=== PATIENT | male | born 1980 | race Two or more races ===

== ENCOUNTER 2025-01-31 18:01 | Inpatient (IN) | payer MEDICAID, OTHER ==
[~2025-01-31] VITALS: Ht 167.6 cm; Wt 101.9 kg
--- NOTE | 2025-01-31 18:37 | ED.PDOC ---
GI ASSESSMENT HPI Comments 44 year old male presents to the ED with a chief complaint of abdominal pain onset 3 days. Patient states he began experiencing RUQ pain 3 days ago, went to urgent care today, was told it was his gallbladder and recommended him to come to ED. Upon ED arrival, patient was hypertensive BP 240/135. Denies any PMHx as well as nausea, vomiting, diarrhea, fever, chills, headache, dizziness, dysuria, hematuria. No other symptoms or modifying factors present at this time. Chief Complaint: Abdominal Pain Time Seen by MD: 18:30 Reviewed Notes: Medications, Allergies Allergies: Coded Allergies: NO KNOWN ALLERGIES (Unverified , 01/31/25) Information Source: Patient, Spouse Mode of Arrival: Ambulatory Timing: Days Duration: Since onset Prehospital treatment: None Quality: Sharp Vomitus: None Severity: Moderate Recent: None Recent Hx of: None Pain Location: RUQ Modifying Factors: Nothing Associated sign and symptoms: Abdominal Pain Past Medical History PAST MEDICAL HISTORY: Denies Surgical History: Denies all surgeries Family History Family History: Reviewed,noncontributory to illness, No family hx of Cancer, No family hx of DM, No family hx of Heart dimas, No family hx of HTN, No family hx ofKidney dimas, No family hx of Liver dimas, No family hx of Lung dimas, No family hx of Stroke Social History Smoker: Non-Smoker Alcohol: Denies ETOH Use Drugs: Denies Drug Use Lives In: Home Constitutional: denies: chills, diaphoresis, fatigue, fever, malaise, sweats, weakness, others EENTM: denies: blurred vision, double vision, ear bleeding, ear discharge, ear drainage, ear pain, ear ringing, eye pain, eye redness, hearing loss, mouth pain, mouth swelling, nasal discharge, nose bleeding, nose congestion, nose pain, photophobia, tearing, throat pain, throat swelling, voice changes, others Respiratory: denies: cough, hemoptysis, orthopnea, SOB at rest, shortness of breath, SOB with excertion, stridor, wheezing, others Cardiovascular: denies: chest pain, dizzy spells, diaphoresis, Dyspnea on exertion, edema, irregular heart beat, left arm pain, lightheadedness, palpitations, PND, syncope, others Gastrointestinal: reports: abdominal pain; denies: abdomen distended, blood streaked bowels, constipated, diarrhea, dysphagia, difficulty swallowing, hematemesis, melena, nausea, poor appetite, poor fluid intake, rectal bleeding, rectal pain, vomiting, others Genitourinary: denies: burning, dysuria, flank pain, frequency, hematuria, in continence, penile discharge, penile sore, pain, testicle pain, testicle swelling, urgency, others Neurological: denies: dizziness, fainting, headache, left sided numbness, left sided weakness, numbness, paresthesia, pre-existing deficit, right sided numbness, right sided weakness, seizure, speech problems, tingling, tremors, weakness, others Musculoskeletal: denies: back pain, gout, joint pain, joint swelling, muscle pain, muscle stiffness, neck pain, others Integumetry: denies: bruises, change in color, change in hair/nails, dryness, laceration, lesions, lumps, rash, wounds, others Allergic/Immunocompromised: denies: Difficulty Healing, Frequent Infections, Hives, Itching, others Hematologic/Lymphatic: denies: anemia, blood clots, easy bleeding, easy bruising, swollen glands, others Endocrine: denies: excessive hunger, excessive sweating, excessive thirst, excessive urination, flushing, intolerance to cold, intolerance to heat, unexplained weight gain, unexplained weight loss, others Psychiatric: denies: anxiety, bipolar disorder, depression, hopeless, panic disorder, schizophrenia, sleepless, suicidal, others All Other Systems: Reviewed and Negative Physical Exam General Appearance: Normal HEENT: Normal ENT Inspection, Pharynx Normal, TMs Normal Neck: Full Range of Motion, Non-Tender, Normal, Normal Inspection Respiratory: Chest Non-Tender, Lungs Clear, No Accessory Muscle Use, No Respiratory Distress, Normal Breath Sounds Cardiovascular: No Edema, No JVD, No Murmur, No Gallop, Normal Peripheral Pulses, Regular Rate/Rhythm Breast Exam: Deferred Gastrointestinal: No Organomegaly, Non Tender, No Pulsatile Mass, Normal Bowel Sounds, Soft Genitalia: Deferred Pelvic: Deferred Rectal: Deferred Extremities: No calf tenderness, Normal capillary refill, Normal inspection, Normal range of motion, Non-tender, No pedal edema Musculoskeletal : Apperance: Normal Neurologic: Alert, needle loom setter II-XII nml as Tested, No Motor Deficits, Normal Affect, Normal Mood, No Sensory Deficits Cerebellar Function: Normal Reflexes: Normal Skin: Dry, Normal Color, Warm Lymphatic: No Adenopathy Was a procedure done? Was a procedure done?: No GI differential Dx Differential Diagnosis: Appendicitis, Cholangitis, Cholecystitis, Constipation, Diverticular disease, Gastritis/PUD, Gastroenteritis, GI hemorrhage, Pancreatitis, Kidney Stone, Other X-Ray, Labs, Meds, VS Vital Signs Date Time Temp Pulse Resp B/P (MAP) Pulse Ox O2 Delivery O2 Flow Rate FiO2 01/31/25 20:18 84 27 189/113 01/31/25 19:40 191/114 01/31/25 19:06 76 20 95 Nasal Cannula* 2 28 01/31/25 19:06 98.6 89 21 191/114 (139) 88 98.6 01/31/25 18:54 77 21 216/121 01/31/25 18:05 99.1 80 16 240/135 93 99.1 Lab Test 01/31/25 18:41 Range/Units White Blood Count 11.6 H 4.4-10.8 10^3/uL Red Blood Count 5.88 4.5-5.90 10^6/uL Hemoglobin 19.5 H 13.5-17.5 g/dL Hematocrit 56.1 H 41.0-53.0 % Mean Corpuscular Volume 95.3 80.0-100.0 fL Mean Corpuscular Hemoglobin 33.1 H 28.0-32.0 pg Mean Corpuscular Hemoglobin Concent 34.7 32.0-36.0 g/dL Red Cell Distribution Width 15.5 H 11.8-14.3 % Platelet Count 204 140-450 10^3/uL Mean Platelet Volume 9.2 6.9-10.8 fL Neutrophils (%) (Auto) 80.1 H 37.0-80.0 % Lymphocytes (%) (Auto) 10.6 10.0-50.0 % Monocytes (%) (Auto) 8.0 0.0-12.0 % Eosinophils (%) (Auto) 0.8 0.0-7.0 % Basophils (%) (Auto) 0.5 0.0-2.0 % Neutrophils # (Auto) 9.3 H 1.6-8.6 10 ^3/uL Lymphocytes # (Auto) 1.2 0.4-5.4 10 ^3/uL Monocytes # (Auto) 0.9 0-1.3 10 ^3/uL Eosinophils # (Auto) 0.1 0-0.8 10 ^3/uL Basophils # (Auto) 0.1 0-0.2 10 ^3/uL Nucleated Red Blood Cells 0.0 % Sodium Level 135 L 136-145 mmol/L Potassium Level 4.5 3.5-5.1 mmol/L Chloride Level 101 98-107 mmol/L Carbon Dioxide Level 26 20-31 mmol/L Anion Gap 8 5-15 Blood Urea Nitrogen 8 L 9-23 mg/dL Creatinine 0.99 0.700-1.30 mg/dL Glomerular Filtration Rate Calc 97 >90 mL/min BUN/Creatinine Ratio 8.1 L 10.0-20.0 Serum Glucose 120 H 74-106 mg/dL Calcium Level 9.0 8.7-10.4 mg/dL Total Bilirubin 0.8 0.2-1.0 mg/dL Aspartate Amino Transferase (AST) 28 13-40 U/L Alanine Aminotransferase (ALT) 25 7-40 U/L Alkaline Phosphatase 59 46-116 U/L Total Protein 7.2 5.7-8.2 g/dL Albumin 4.2 3.2-4.8 g/dL Lipase 33 12-53 U/L Current Medications Medications (Trade) Dose Ordered Sig/Rolo Route Start Time Stop Time Status Last Admin Ondansetron HCl (Zofran) 4 mg ONCE ONCE IV 01/31/25 18:45 01/31/25 18:46 DC 01/31/25 18:50 Morphine Sulfate 4 mg ONCE ONCE IV 01/31/25 18:45 01/31/25 18:46 DC 01/31/25 18:54 Ketorolac Tromethamine (Toradol Injection) 15 mg ONCE ONCE IV 01/31/25 18:45 01/31/25 18:46 DC 01/31/25 18:53 Hydralazine HCl (Apresoline Injection) 20 mg ONCE ONCE IV 01/31/25 19:15 01/31/25 19:16 DC 01/31/25 19:40 [facility] [id number] [place] [id number] Ph: [phone] DIAGNOSTIC IMAGING Diagnostic Imaging Report : [id number] Signed PATIENT: SAMMY KEENAN ACCT: [id number] UNIT: [id number] : 1980 LOC: ER ROOM / BED: / AGE / SEX: 44 / M ADM STATUS: REG ER SERVICE 32 ORDERING PHYSICIAN: BLAIR CAZARES MD PROCEDURE(s): GBUS - GALLBLADDER REASON: RUQ pain ORDER NUMBER(s): [id number], ACCESSION NUMBER(s): [id number] CLINICAL HISTORY: RUQ pain TECHNIQUE: Transabdominal sonogram was performed of the right upper quadrant. COMPARISON: None FINDINGS: The liver is increased in echogenicity. There is no focal parenchymal abnormality. No intrahepatic biliary ductal dilatation is present. The liver measures 19.2 cm. The gallbladder contains stones and sludge. There is moderate 6 mm gallbladder wall thickening. The center graphic funez sign was reported to be absent. The common bile duct is normal in caliber, measuring 3 mm. The partially visualized pancreas is grossly unremarkable. The right kidney is normal in echogenicity and measures 12.3 cm in length. There is no evidence for hydronephrosis or calculi. There are cyst measuring up to 2.6 cm. IMPRESSION: Cholelithiasis with fluid and moderate gallbladder wall thickening. Diffuse hepatic steatosis. ATED BY: IMAN LAMAS MD DICTATED DATE/TIME: 01/31/251946 SIGNED BY: IMAN LAMAS MD SIGNED DATE/TIME: 01/31/251946 CC: Time of 1ST Reevaluation: 19:00 Reevaluation 1ST: Unchanged Patient Education/Counseling: Diagnosis, Treatment, Prognosis Family Education/Counseling: Diagnosis, Treatment, Prognosis SEPSIS Sepsis Screen Date sepsis recognized/suspect: Jan 31, 2025 Time Sepsis recognized/suspect: 1809 Recent Procedure: No (T) On Antibiotic Therapy: No Respiratory Rate >20: No Heart Rate >90: No Temp<36 C (96.8 F) or >38.3 C: No SBP <90 or MAP <65 mmHG: No New Acute Mental Status Change: No Is the patient on CPAP, BIPAP,: No Physician Orders Urinalysis (01/31/25 18:33) Gallbladder (01/31/25 18:33) Lactic Acid W/ Reflex Order (01/31/25 20:19) Blood Culture (01/31/25 20:19) Zosyn Extended Infusion (01/31/25 20:30) Vital Signs Date Time Temp Pulse Resp B/P (MAP) Pulse Ox O2 Delivery O2 Flow Rate FiO2 01/31/25 20:18 84 27 189/113 01/31/25 19:40 191/114 01/31/25 19:06 76 20 95 Nasal Cannula* 2 28 01/31/25 19:06 98.6 89 21 191/114 (139) 88 98.6 01/31/25 18:54 77 21 216/121 01/31/25 18:05 99.1 80 16 240/135 93 99.1 Laboratory Tests Test 01/31/25 18:41 White Blood Count 11.6 10^3/uL (4.4-10.8) H Medications Medications Dose Ordered Sig/Rolo Route Start Time Stop Time Status Last Admin Dose Admin Hydralazine HCl 20 mg ONCE ONCE IV 01/31/25 19:15 01/31/25 19:16 DC 01/31/25 19:40 Ketorolac Tromethamine 15 mg ONCE ONCE IV 01/31/25 18:45 01/31/25 18:46 DC 01/31/25 18:53 Morphine Sulfate 4 mg ONCE ONCE IV 01/31/25 18:45 01/31/25 18:46 DC 01/31/25 18:54 Ondansetron HCl 4 mg ONCE ONCE IV 01/31/25 18:45 01/31/25 18:46 DC 01/31/25 18:50 Departure 1 Departure Time of Disposition: 20:20 Impression: Primary Impression: Cholecystitis Additional Impression: Hypertensive urgency Disposition: ADMITTED INPATIENT Admit to: Med Surg Condition: Guarded Comments Patient with right upper quadrant pain. Also severe hypertension. Patient was given hydralazine for the hypertension. Lab results reviewed. White blood cell count somewhat elevated at 12. Ultrasound of the right upper quadrant shows gallstones and some thickening of the gallbladder wall. Patient is still has some pain on re-evaluation. Patient will need to be admitted for cholecystitis and hypertensive urgency. Critical Care Note Critical Care Time?: Yes (35 min-critical care time only) Critical care comment: Total critical care time: Approximately 36 minutes Due to a high probability of clinically significant, life threatening deterioration, the patient required my highest level of preparedness to intervene emergently and I personally spent this critical care time directly and personally managing the patient. This critical care time included obtaining a history; examining the patient; pulse oximetry; ordering and review of studies; arranging urgent treatment with development of a management plan; evaluation of patient's response to treatment; frequent reassessment; and, discussions with other providers. This critical care time was performed to assess and manage the high probability of imminent, life-threatening deterioration that could result in multi-organ failure. It was exclusive of separately billable procedures and treating other patients. Stability Stability form required: No Heart Score Heart Score: Heart Score Response (Comments) Value History N/A 0 EKG N/A 0 Age N/A 0 Risk Factors N/A 0 Troponin N/A 0 Total 0 I personally scribed for BLAIR CAZARES MD ([email or web address]) on 01/31/25 at 18:37. Electronically submitted by Wilma Thompson ([email or web address]). I personally scribed for BLAIR CAZARES MD ([email or web address]) on 01/31/25 at 20:03. Electronically submitted by Wilma Thompson ([email or web address]). BLAIR CAZARES MD Jan 31, 2025 18:37
[2025-01-31] MEDS: ONDANSETRON HCL 4 MG/2 ML VIAL IV ONE (18:50)
[2025-01-31] MEDS: KETOROLAC TROMETH 30 MG/ML 1ML VIAL IV ONE (18:53)
[2025-01-31] MEDS: MORPHINE SULFATE 4 MG/ML SYR/VIAL IV ONE (18:54)
[2025-01-31 19:03] LABS: Hemoglobin 19.5 g/dL (13.5-17.5); Nucleated Red Blood Cells % 0.0 %
[2025-01-31 19:04] LABS: Hematocrit 56.1 % (41.0-53.0); Mean Corpuscular Hemoglobin 33.1 pg (28.0-32.0); Mean Corpuscular Volume 95.3 fL (80.0-100.0)
[2025-01-31 19:06] VITALS: PULSE 76; RESP 20; O2SAT 95
[2025-01-31 19:18] LABS: Alanine Aminotransferase 25 U/L (7-40); Albumin 4.2 g/dL (3.2-4.8); Alkaline Phosphatase 59 U/L (46-116); Anion Gap 8 (5-15); BUN/Creatinine Ratio 8.1 (10.0-20.0); Bilirubin, Total 0.8 mg/dL (0.2-1.0); Calcium 9.0 mg/dL (8.7-10.4); Carbon Dioxide 26 mmol/L (20-31); Chloride 101 mmol/L (98-107); Lipase 33 U/L (12-53); Potassium 4.5 mmol/L (3.5-5.1); Total Protein 7.2 g/dL (5.7-8.2)
[2025-01-31 19:23] LABS: Blood Urea Nitrogen 8 mg/dL (9-23); Glucose 120 mg/dL (74-106); Sodium 135 mmol/L (136-145)
[2025-01-31] MEDS: hydrALAZINE HCL 20 MG/ML VL IV ONE (19:40)
--- NOTE | 2025-01-31 19:50 | DVH ---
CLINICAL HISTORY: RUQ pain TECHNIQUE: Transabdominal sonogram was performed of the right upper quadrant. COMPARISON: None FINDINGS: The liver is increased in echogenicity. There is no focal parenchymal abnormality. No intrahepatic b iliary ductal dilatation is present. The liver measures 19.2 cm. The gallbladder contains stones and sludge. There is moderate 6 mm gallbladder wall thickening. The c enter graphic funez sign was reported to be absent. The common bile duct is normal in caliber, measuring 3 mm. The partially visualized pancreas is grossly unremarkable. The right kidney is normal in echogenicity and measures 12.3 cm in length. There is no evidence for h ydronephrosis or calculi. There are cyst measuring up to 2.6 cm. IMPRESSION: Cholelithiasis with fluid and moderate gallbladder wall thickening. Diffuse hepatic steatosis.
[2025-01-31 20:00] VITALS: PULSE 84; RESP 27; O2SAT 95
--- NOTE | 2025-01-31 20:24 | ECG ---
[facility] Test Date: 2025-01-31 Test Time: 18:15:06 Pat Name: SAMMY CUNNINGHAM Department: ED Room: 0219 Gender: M Business Intelligence Architect: tristian : 1980 Requested By: BLAIR CAZARES Order Number: [id number] Reading MD: Uche Swartz Measurements Intervals [place] Rate: 76 P: 54 MO: 135 QRS: 148 QRSD: 85 T: 30 QT: 410 QTc: 462 Interpretive Statements Sinus rhythm Nonspecific T abnormalities, lateral leads Baseline wander in lead(s) V3 Electronically Signed On 02-01-2025 17:03:03 PDT by Uche Swartz Please click the below link to view image of tracing.
[2025-01-31] MEDS: PIPERACILLIN-TAZOB 3.375GM 100 ML IV ONE (20:57)
[2025-02-01] VITALS (9 sets, daily range): BP systolic 130–164; BP diastolic 80–91; PULSE 85–99; RESP 18–22; TEMP 97.6–99.3; O2SAT 90–95
[2025-02-01 00:16] LABS: Urine Protein, UAD 2+ (Negative)
[2025-02-01] MEDS: ONDANSETRON HCL 4 MG/2 ML VIAL IV PRN (02:39)
[2025-02-01] MEDS: MORPHINE SULFATE INJ 2 MG/ml SYRG IV PRN (02:41)
[2025-02-01 03:58] LABS: Nucleated Red Blood Cells % 0.0 %
[2025-02-01 04:01] LABS: Hematocrit 56.6 % (41.0-53.0); Hemoglobin 19.8 g/dL (13.5-17.5); Mean Corpuscular Hemoglobin 33.3 pg (28.0-32.0); Mean Corpuscular Volume 95.4 fL (80.0-100.0)
[2025-02-01 04:21] LABS: INR 1.03 (0.9-1.15); Partial Thromboplastin Time 31.3 SEC (24.5-34.5); Prothrombin Time 10.9 sec (9.3-11.8)
[2025-02-01 04:26] LABS: Alanine Aminotransferase 25 U/L (7-40); Albumin 4.3 g/dL (3.2-4.8); Alkaline Phosphatase 60 U/L (46-116); Anion Gap 8 (5-15); BUN/Creatinine Ratio 9.1 (10.0-20.0); Calcium 9.2 mg/dL (8.7-10.4); Carbon Dioxide 27 mmol/L (20-31); Chloride 100 mmol/L (98-107); Potassium 4.7 mmol/L (3.5-5.1); Total Protein 7.4 g/dL (5.7-8.2)
[2025-02-01 04:26] LABS: Cocaine Screen, Urine Neg (NEGATIVE); Opiate Scree,Urine Pos (NEGATIVE)
[2025-02-01 04:27] LABS: Bilirubin, Total 1.2 mg/dL (0.2-1.0)
[2025-02-01 04:29] LABS: Blood Urea Nitrogen 8 mg/dL (9-23); Glucose 139 mg/dL (74-106); Sodium 135 mmol/L (136-145)
[2025-02-01 04:38] LABS: Amphetamine Screen, Urine Neg (NEGATIVE); Barbiturate Scree,Urine Neg (NEGATIVE); Cannabinoid Screen, Urine Neg (NEGATIVE); Phencyclidine Screen, Urine Neg (NEGATIVE)
[2025-02-01 05:57] LABS: Benzodiazephine Screen, Urine Neg (NEGATIVE)
[2025-02-01] MEDS: PIPERACILLIN-TAZOB 3.375GM 100 ML IV SCH (06:16)
--- NOTE | 2025-02-01 06:33 | DVHHPRES ---
History of Present Illness Resident Creating Document: DONNA SINCLAIR RESIDENT History of Present Illness SAMMY KEENAN is a 44-year-old male with past medical history of presented to the ED with chief complaint of right upper quadrant and epigastric tenderness which is 10/10 intensity and radiating to the back associated with nausea, 1 episode of vomiting since 4 days. Patient On Wednesday he had the pain and took an ibuprofen which only partially reduce the pain, he also states that pain increases after eating fatty meals. Patient had similar symptoms about a year ago for which he took ibuprofen at the time and the pain went away. On arrival patient was hypotensive with BP of 240/135. And patient is on 3 L oxygen, does not use home oxygen. Patient denies any diarrhea, fever, chills, headache, dizziness, dysuria, hematuria, blood in the stool. Patient is admitted for for the management. Past surgical history: Denies Family History: Reviewed noncontributory Personal History: 5-6 cigarettes per day, drinks 5 beers per week, denies any drug use Lives with: Family Review of Systems Constitutional: No: Fever, Chills, Sweats, Weakness, Malaise, Other Eyes: No: Pain, Vision change, Conjunctivae inflammation, Eyelid inflammation, Other, Redness ENT: No: Ear pain, Ear discharge, Nose pain, Nose discharge, Nose congestion, Mouth pain, Mouth swelling, Throat pain, Throat swelling, Other Respiratory: No: Cough, Dry, Shortness of breath, SOB with excertion, Wheezing, Hemoptysis, Pleuritic Pain, Sputum, Wheezing, Other Cardiovascular: No: Chest Pain, Palpitations, Orthopnea, Paroxysmal Noc. D yspnea, Edema, Lt Headedness, Other Gastrointestinal: Nausea, Abdominal Pain; No: Vomiting, Diarrhea, Constipation, Melena, Hematochezia, Other Genitourinary: No Dysuria, No Frequency, No Incontinence, No Hematuria, No Retention, No Other Musculoskeletal: No: other, neck pain, shoulder pain, arm pain, back pain, hand pain, leg pain, foot pain Skin: No: Rash, Lesions, Jaundice, Bruising, Other Neurological: No: Weakness, Numbness, Incoordination, Change in speech, Confusion, Seizures, Other Allergies: Coded Allergies: NO KNOWN ALLERGIES (Unverified , 01/31/25) Medications Current Medications Medications Dose Ordered Sig/Rolo Route Start Time Stop Time Status Last Admin Dose Admin Acetaminophen 325 mg Q4HP PRN PO 02/01/25 01:30 Ondansetron HCl 4 mg Q4HP PRN IV 02/01/25 01:30 02/01/25 02:39 4 MG Morphine Sulfate 2 mg Q4HPRN PRN IV 02/01/25 01:30 02/01/25 02:41 2 MG Nifedipine 60 mg DAILY PO 02/01/25 02:30 02/01/25 02:39 60 MG Piperacillin Sod/ Tazobactam Sod 100 ml @ 25 mls/hr Q8HR IV 02/01/25 06:00 Exam Vital Signs Vital Signs Date Time Temp Pulse Resp B/P (MAP) Pulse Ox O2 Delivery O2 Flow Rate FiO2 02/01/25 05:28 97.9 85 18 164/91 (115) 93 97.9 01/31/25 20:00 Nasal Cannula* 2 28 Exam General: Patient alert and oriented in person, place and time. Patient following commands. In moderate distress HEENT: Normocephalic, atraumatic, moist mucous membranes Respiratory/pulmonary: Clear lungs bilaterally, vesicular murmurs present in almost all lung melara, no associated crackles or wheezes. Cardiovascular: Normal heart sounds S1 and S2 with no associated murmurs Abdomen: Right upper quadrant , epigastric tenderness, Barnard sign positive Extremities: Mild bilateral edema Peripheral Pulses: 3+ Radial (R). 3+ Radial (L). 3+ Dorsalis pedis (R). 3+ Dorsalis pedis(L) Skin: No rashes or pruritus, there is no sacral edema present at this time. Neurological: Intact cranial nerves with no focal neurologic deficits Psych/mood: Normal psych/mood Respiratory: Clear to auscultation Labs/Xrays Labs Test 02/01/25 03:47 01/31/25 23:45 01/31/25 20:35 01/31/25 18:41 Range/Units White Blood Count 14.2 H 4.4-10.8 10^3/uL Red Blood Count 5.93 H 4.5-5.90 10^6/uL Hemoglobin 19.8 H 13.5-17.5 g/dL Hematocrit 56.6 H 41.0-53.0 % Mean Corpuscular Volume 95.4 80.0-100.0 fL Mean Corpuscular Hemoglobin 33.3 H 28.0-32.0 pg Mean Corpuscular Hemoglobin Concent 35.0 32.0-36.0 g/dL Red Cell Distribution Width 15.7 H 11.8-14.3 % Platelet Count 207 140-450 10^3/uL Mean Platelet Volume 9.0 6.9-10.8 fL Neutrophils (%) (Auto) 86.2 H 37.0-80.0 % Lymphocytes (%) (Auto) 5.7 L 10.0-50.0 % Monocytes (%) (Auto) 7.3 0.0-12.0 % Eosinophils (%) (Auto) 0.3 0.0-7.0 % Basophils (%) (Auto) 0.5 0.0-2.0 % Neutrophils # (Auto) 12.2 H 1.6-8.6 10 ^3/uL Lymphocytes # (Auto) 0.8 0.4-5.4 10 ^3/uL Monocytes # (Auto) 1.0 0-1.3 10 ^3/uL Eosinophils # (Auto) 0 0-0.8 10 ^3/uL Basophils # (Auto) 0.1 0-0.2 10 ^3/uL Nucleated Red Blood Cells 0.0 % Prothrombin Time 10.9 9.3-11.8 sec Prothrombin Time INR 1.03 0.9-1.15 Activated Partial Thromboplast Time 31.3 24.5-34.5 SEC Sodium Level 135 L 136-145 mmol/L Potassium Level 4.7 3.5-5.1 mmol/L Chloride Level 100 98-107 mmol/L Carbon Dioxide Level 27 20-31 mmol/L Anion Gap 8 5-15 Blood Urea Nitrogen 8 L 9-23 mg/dL Creatinine 0.88 0.700-1.30 mg/dL Glomerular Filtration Rate Calc 109 >90 mL/min BUN/Creatinine Ratio 9.1 L 10.0-20.0 Serum Glucose 139 H 74-106 mg/dL Calcium Level 9.2 8.7-10.4 mg/dL Total Bilirubin 1.2 H 0.2-1.0 mg/dL Aspartate Amino Transferase (AST) 25 13-40 U/L Alanine Aminotransferase (ALT) 25 7-40 U/L Alkaline Phosphatase 60 46-116 U/L Total Protein 7.4 5.7-8.2 g/dL Albumin 4.3 3.2-4.8 g/dL Urine Color Yellow Yellow Urine Clarity Clear Clear Urine pH 6.0 5.0-9.0 Urine Specific [place] 1.021 1.001-1.035 Urine Protein 2+ H Negative Urine Ketones Negative Negative Urine Blood Negative Negative /uL Urine Nitrite Negative Negative Urine Bilirubin Negative Negative Urine Urobilinogen Normal Negative mg/dL Urine Leukocyte Esterase Negative Negative /uL Urine RBC None seen 0 - 3 /hpf Urine Microscopic WBC 2 0-3 /HPF Urine Squamous Epithelial Cells None seen <5 /hpf Urine Bacteria None seen None Seen /hpf Urine Mucus Few None Seen Urine Glucose Normal Normal mg/dL Urine Opiates Screen Pos NEGATIVE Urine Fentanyl Screen Neg NEGATIVE Urine Barbiturates Screen Neg NEGATIVE Urine Phencyclidine Screen Neg NEGATIVE Urine Amphetamines Screen Neg NEGATIVE Urine Cocaine Screen Neg NEGATIVE Urine Cannabinoids Screen Neg NEGATIVE Lactic Acid Level 1.1 0.4-2.0 mmol/L Lipase 33 12-53 U/L SEPSIS Sepsis Screen Date sepsis recognized/suspect: Jan 31, 2025 Time Sepsis recognized/suspect: 2027 Recent Procedure: No On Antibiotic Therapy: Yes Respiratory Rate >20: Yes Heart Rate >90: No Temp<36 C (96.8 F) or >38.3 C: No SBP <90 or MAP <65 mmHG: No New Acute Mental Status Change: No Is the patient on CPAP, BIPAP,: No Physician Orders Admit (02/01/25 01:28) Allergies (02/01/25 01:28) Code Status (02/01/25 01:28) Acetaminophen Tablet (Tylenol Tablet) (02/01/25 01:30) Ondansetron Hcl (Zofran) (02/01/25 01:30) Npo (Nothing By Mouth) Diet (02/01/25 Breakfast) Condition: Serious (02/01/25 01:28) Bedrest With Bathroom Privileg (02/01/25 01:28) Morphine Sulfate Injection (02/01/25 01:30) Stat Ekg For Chest Pain (02/01/25 01:28) Drug Screen (02/01/25 02:19) Nifedipine Er (Procardia Xl (Time-Releas (02/01/25 02:30) Nm Hida Scan (02/01/25 03:29) Piperacillin-Tazob 3.375gm (Zosyn 3.375g (02/01/25 06:00) * Surgical Consult (02/01/25 ) D5w/Lactated Ringers (D5wlr) (02/01/25 06:00) Vital Signs Date Time Temp Pulse Resp B/P (MAP) Pulse Ox O2 Delivery O2 Flow Rate FiO2 02/01/25 05:28 97.9 85 18 164/91 (115) 93 97.9 02/01/25 05:00 88 23 150/89 (109) 96 02/01/25 04:00 85 23 164/89 (114) 96 02/01/25 03:15 81 25 167/106 (126) 95 02/01/25 02:41 90 19 160/93 02/01/25 02:39 160/93 02/01/25 02:00 87 27 160/93 (115) 94 02/01/25 01:00 85 15 170/90 (116) 95 02/01/25 00:00 89 24 147/90 (109) 95 01/31/25 23:00 89 27 145/89 (107) 95 01/31/25 22:00 82 17 159/89 (112) 94 Laboratory Tests Test 01/31/25 18:41 01/31/25 20:35 02/01/25 03:47 White Blood Count 11.6 10^3/uL (4.4-10.8) H 14.2 10^3/uL (4.4-10.8) H Lactic Acid Level 1.1 mmol/L (0.4-2.0) Medications Medications Dose Ordered Sig/Rolo Route Start Time Stop Time Status Last Admin Dose Admin Hydralazine HCl 20 mg ONCE ONCE IV 01/31/25 19:15 01/31/25 19:16 DC 01/31/25 19:40 20 MG Ketorolac Tromethamine 15 mg ONCE ONCE IV 01/31/25 18:45 01/31/25 18:46 DC 01/31/25 18:53 15 MG Morphine Sulfate 2 mg Q4HPRN PRN IV 02/01/25 01:30 02/01/25 02:41 2 MG Morphine Sulfate 4 mg ONCE ONCE IV 01/31/25 18:45 01/31/25 18:46 DC 01/31/25 18:54 4 MG Nifedipine 60 mg DAILY PO 02/01/25 02:30 02/01/25 02:39 60 MG Ondansetron HCl 4 mg ONCE ONCE IV 01/31/25 18:45 01/31/25 18:46 DC 01/31/25 18:50 4 MG Ondansetron HCl 4 mg Q4HP PRN IV 02/01/25 01:30 02/01/25 02:39 4 MG Piperacillin Sod/ Tazobactam Sod 100 ml @ 100 mls/hr ONCE ONCE IV 01/31/25 20:30 01/31/25 21:29 DC 01/31/25 20:57 100 MLS/HR Assessment/Plan Assessment/Plan # sepsis possibly due to acute cholecystitis # symptomatic cholelithiasis # rule out acute cholecystitis # hepatic steatosis # hyperBilirubinemia - gallbladder ultrasound showed Cholelithiasis with fluid and moderate gallbladder wall thickening. Diffuse hepatic steatosis. - HIDA scan ordered - surgery consulted, pending - IV Zosyn started -Barnard's sign positive # diabetes mellitus - Accu-Cheks -mild insulin sliding scale # hypertension -continue home meds # polysubstance abuse disorder: UDS Positive for opiates -patient counseled on cessation of smoking, drinking, drug use for 13 minutes # obesity BMI 33.6 -patient counseled on lifestyle modifications, diet, exercise for 13 minutes PPI prophylaxis: Protonix DVT prophylaxis: Not indicated Goals of care addressed with the patient for more than 31 minutes: Full code status Case discussed with Dr. Smith , patient and nurse Plan discussed with: Patient My Orders Orders - DONNA SINCLAIR RESIDENT Procedure Category Date Status Time Admit ADMIT 02/01/25 Transmitted 01:28 Allergies BINH 02/01/25 In Process 01:28 Code Status CODE 02/01/25 Transmitted 01:28 Acetaminophen Tablet PHA 02/01/25 In Process (Tylenol Tablet) 01:30 Ondansetron Hcl PHA 02/01/25 In Process (Zofran) 01:30 Npo (Nothing By DIET 02/01/25 Transmitted Mouth) Diet Breakfast Condition: Serious BINH 02/01/25 In Process 01:28 Bedrest With Bathroom BINH 02/01/25 In Process Privileg 01:28 Morphine Sulfate PHA 02/01/25 In Process Injection 01:30 Stat Ekg For Chest [facility]INH 02/01/25 In Process Pain 01:28 Nm Hida Scan NM 02/01/25 Logged 03:29 Piperacillin-Tazob PHA 02/01/25 In Process 3.375gm (Zosyn 3.375g 06:00 * Surgical Consult CONS 02/01/25 Transmitted D5w/Lactated Ringers PHA 02/01/25 Logged (D5wlr) 06:00 Date of Service: Feb 01, 2025 Billing Provider: LESLEI SMITH MD Common Visit Codes: 43699-[id number] INP/OBS CARE (HIGH) Secondary Visit Codes: 47616-[id number] CARE PLAN 30 MINUTES DONNA SINCLAIR RESIDENT Feb 01, 2025 06:33
[2025-02-01] MEDS ORDERED: METF-372 PO (07:12)
[2025-02-01] MEDS: ACETAMINOPHEN 325 MG TAB PO PRN (08:23)
[2025-02-01] MEDS: SODIUM CHLORIDE 0.9% 500 ML IV ONE (09:34)
[2025-02-01] MEDS: D5W/LACTATED RINGERS 1,000 ML IV ONE (11:11)
[2025-02-01] MEDS: SODIUM CHLORIDE 0.9% 1,000 ML IV SCH (13:27)
--- NOTE | 2025-02-01 15:04 | DVHPNRES ---
Progress Note Date Seen: Feb 01, 2025 Resident Creating Document: ASPEN BATISTA RESIDENT Medical Necessity Reason Pt with a Central, PICC or Fol: No (RN) Subjective Review of Systems Ferdinand Hong is a 44-year-old male who presents to the ED with chief complaint of right upper quadrant and epigastric tenderness which is 10/10 intensity and radiating to the back associated with nausea, 1 episode of vomiting which started four days before his admission, aggravated by food and partially relieved by ibuprofen and fasting. Patient denies any diarrhea, fever, chills, headache, dizziness, dysuria, hematuria, blood in the stool. Past medical history: Diabetes, hypertension, dyslipidemia, obese Past surgical history: Denies Family History: Noncontributory Social history: Lives with family in [place] (next o kin ). Current smoker (5-6 cigarettes per day a proximally 10 pack-year history of smoking), drinks 5 beers per week, denies any drug use Allergies: Denies Home medication: Metformin a 1000 mg p.o. b.i.d. The patient was seen and examined at bedside. Overnight events were reviewed. He reports having upper abdominal pain improved from yesterday, currently NPO. He denies any chest pain, shortness of breath, cough, fever or any other complaints today. Objective vital signs Vital Sign Date Time Temp Pulse Resp B/P (MAP) Pulse Ox O2 Delivery O2 Flow Rate FiO2 02/01/25 14:50 98.2 90 18 139/80 (99) 92 98.2 01/31/25 20:00 Nasal Cannula* 2 28 Total Intake and Output 01/31/25 01/31/25 02/01/25 14:59 22:59 06:59 Intake Total 100 ml Balance 100 ml medications Current Medications Medications Dose Ordered Sig/Rolo Route Start Time Stop Time Status Last Admin Dose Admin Acetaminophen 325 mg Q4HP PRN PO 02/01/25 01:30 02/01/25 08:23 325 MG Ondansetron HCl 4 mg Q4HP PRN IV 02/01/25 01:30 02/01/25 02:39 4 MG Morphine Sulfate 2 mg Q4HPRN PRN IV 02/01/25 01:30 02/01/25 02:41 2 MG Nifedipine 60 mg DAILY PO 02/01/25 02:30 02/01/25 09:37 60 MG Piperacillin Sod/ Tazobactam Sod 100 ml @ 25 mls/hr Q8HR IV 02/01/25 06:00 02/01/25 06:16 25 MLS/HR Sodium Chloride 1,000 ml @ 100 mls/hr Q10H IV 02/01/25 08:00 Examination Pt is lying on bed General Appearance: Alert, Oriented X3, Cooperative, Mild distress HEENT: Atraumatic, Mucous membranes moist/pink Respiratory: Clear to auscultation, Normal air movement, No added sounds Cardiovascular: Regular rate, Normal S1, Normal S2, No murmurs Abdominal/ : Active bowel sounds, Soft, no distention, right upper abdominal tenderness Extremities: No edema, Normal pulses, No tenderness/swelling Skin: No Significant rash, except past surgical scars Neuro: Normal speech, sensorimotor deficits none Psych/Mental Status: Mental status NL, Mood NL 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 Diffuse hepatic steatosis. -HIDA scan ordered, results pending -surgery consulted, pending -NPO -IV fluid -IV Zosyn started # Hypertensive urgency -Patient has history of hypertension but was controlled with lifestyle habits. -Was admitted with systolic blood pressure of 240 mmHg. Has no signs of end- organ damage -Started nifedipine # Diabetes mellitus # Hypertension -Accu-Cheks -On mild insulin sliding scale -Gave advice on healthy lifestyle habits # Obesity BMI 33.6 -Patient counseled on lifestyle modifications, diet, exercise for 13 minutes PPI prophylaxis: Protonix DVT prophylaxis: Enoxaparin 40 mg subcutaneous daily Goals of care discussed with patient for over 18 minutes: Full code status Case discussed with Dr. Patton, patient and nurses Plan discussed with: Patient, Other ASPEN BATISTA RESIDENT Feb 01, 2025 15:03 DONAL MAXWELL RESIDENT Feb 02, 2025 06:55
--- NOTE | 2025-02-01 16:17 | DVHINCON2 ---
Date of service: Feb 01, 2025 Family History: GI disorder Allergies: Coded Allergies: NO KNOWN ALLERGIES (Unverified , 01/31/25) Home Meds Reported Medications Metformin Hydrochloride (Metformin Hcl) 1,000 Mg Tab, 1 TAB PO BID, #180 TAB 1 Refill 02/01/25 Current Medications Current Medications Medications (Trade) Dose Ordered Sig/Rolo Route PRN Reason Start Time Stop Time Status Last Admin Acetaminophen (Tylenol Tablet) 325 mg Q4HP PRN PO MILD PAIN (1-3 PAIN SCALE) 02/01/25 01:30 02/01/25 08:23 Ondansetron HCl (Zofran) 4 mg Q4HP PRN IV NAUSEA / VOMITING 02/01/25 01:30 02/01/25 02:39 Morphine Sulfate 2 mg Q4HPRN PRN IV SEVERE PAIN (7-10 PAIN SCALE) 02/01/25 01:30 02/01/25 02:41 Nifedipine (Procardia Xl (Time-Release)) 60 mg DAILY PO 02/01/25 02:30 02/01/25 09:37 Piperacillin Sod/ Tazobactam Sod 100 ml @ 25 mls/hr Q8HR IV 02/01/25 06:00 02/01/25 15:00 Sodium Chloride 1,000 ml @ 100 mls/hr Q10H IV 02/01/25 08:00 02/01/25 15:07 Metformin HCl (Glucophage) 1,000 mg DAILY PO 02/02/25 10:00 UNV Vital Signs Vital Signs Date Time Temp Pulse Resp B/P (MAP) Pulse Ox O2 Delivery O2 Flow Rate FiO2 02/01/25 15:07 94 Room Air* 0 21 02/01/25 14:50 98.2 18 139/80 (99) 92 98.2 Labs/Diagnostic Data Labs Test 02/01/25 09:13 02/01/25 06:55 02/01/25 03:47 01/31/25 23:45 Range/Units Vitamin D 25-Hydroxy 8.4 L 30.0-100 ng/mL Lactic Acid Level 1.8 0.4-2.0 mmol/L White Blood Count 14.2 H 4.4-10.8 10^3/uL Red Blood Count 5.93 H 4.5-5.90 10^6/uL Hemoglobin 19.8 H 13.5-17.5 g/dL Hematocrit 56.6 H 41.0-53.0 % Mean Corpuscular Volume 95.4 80.0-100.0 fL Mean Corpuscular Hemoglobin 33.3 H 28.0-32.0 pg Mean Corpuscular Hemoglobin Concent 35.0 32.0-36.0 g/dL Red Cell Distribution Width 15.7 H 11.8-14.3 % Platelet Count 207 140-450 10^3/uL Mean Platelet Volume 9.0 6.9-10.8 fL Neutrophils (%) (Auto) 86.2 H 37.0-80.0 % Lymphocytes (%) (Auto) 5.7 L 10.0-50.0 % Monocytes (%) (Auto) 7.3 0.0-12.0 % Eosinophils (%) (Auto) 0.3 0.0-7.0 % Basophils (%) (Auto) 0.5 0.0-2.0 % Neutrophils # (Auto) 12.2 H 1.6-8.6 10 ^3/uL Lymphocytes # (Auto) 0.8 0.4-5.4 10 ^3/uL Monocytes # (Auto) 1.0 0-1.3 10 ^3/uL Eosinophils # (Auto) 0 0-0.8 10 ^3/uL Basophils # (Auto) 0.1 0-0.2 10 ^3/uL Nucleated Red Blood Cells 0.0 % Erythrocyte Sedimentation Rate 6 0-20 mm/hr Prothrombin Time 10.9 9.3-11.8 sec Prothrombin Time INR 1.03 0.9-1.15 Activated Partial Thromboplast Time 31.3 24.5-34.5 SEC Sodium Level 135 L 136-145 mmol/L Potassium Level 4.7 3.5-5.1 mmol/L Chloride Level 100 98-107 mmol/L Carbon Dioxide Level 27 20-31 mmol/L Anion Gap 8 5-15 Blood Urea Nitrogen 8 L 9-23 mg/dL Creatinine 0.88 0.700-1.30 mg/dL Glomerular Filtration Rate Calc 109 >90 mL/min BUN/Creatinine Ratio 9.1 L 10.0-20.0 Serum Glucose 139 H 74-106 mg/dL Hemoglobin A1c 6.6 H <5.7 % A1C Calcium Level 9.2 8.7-10.4 mg/dL Total Bilirubin 1.2 H 0.2-1.0 mg/dL Aspartate Amino Transferase (AST) 25 13-40 U/L Alanine Aminotransferase (ALT) 25 7-40 U/L Alkaline Phosphatase 60 46-116 U/L C-Reactive Protein High Sensitivity 14.52 H <1.0 mg/dL Total Protein 7.4 5.7-8.2 g/dL Albumin 4.3 3.2-4.8 g/dL Thyroid Stimulating Hormone (TSH) 27.24 H 0.55-4.78 uIU/mL Urine Color Yellow Yellow Urine Clarity Clear Clear Urine pH 6.0 5.0-9.0 Urine Specific [place] 1.021 1.001-1.035 Urine Protein 2+ H Negative Urine Ketones Negative Negative Urine Blood Negative Negative /uL Urine Nitrite Negative Negative Urine Bilirubin Negative Negative Urine Urobilinogen Normal Negative mg/dL Urine Leukocyte Esterase Negative Negative /uL Urine RBC None seen 0 - 3 /hpf Urine Microscopic WBC 2 0-3 /HPF Urine Squamous Epithelial Cells None seen <5 /hpf Urine Bacteria None seen None Seen /hpf Urine Mucus Few None Seen Urine Glucose Normal Normal mg/dL Urine Opiates Screen Pos NEGATIVE Urine Fentanyl Screen Neg NEGATIVE Urine Barbiturates Screen Neg NEGATIVE Urine Phencyclidine Screen Neg NEGATIVE Urine Amphetamines Screen Neg NEGATIVE Urine Benzodiazepines Screen Neg NEGATIVE Urine Cocaine Screen Neg NEGATIVE Urine Cannabinoids Screen Neg NEGATIVE Test 01/31/25 18:41 Range/Units Lipase 33 12-53 U/L Assessment 44 year old male with documented cholelithiasis and cholecystitis, abdomne tender in ruq with guarding laparoscopic vs open cholecystrectomy risks and complications explained in detail Plan discussed with: Patient SARAHI POMPA MD Feb 01, 2025 16:17
--- NOTE | 2025-02-01 17:16 | DVH ---
EXAM: NM NM HIDA SCAN History: rule out acute Cholecystitis Comparison Study: None TECHNIQUE: Following intravenous administration of 6.2 mCi of Tc-99m mebrofenin (Choletec), dynamic sequential images of the right upper abdomen were acquired for 60 minutes. 4 hour delayed planar imag es were also obtained. FINDINGS: The liver demonstrates prompt radiotracer uptake with clearance from blood pool. No focal perfusion d efects were noted. There was prompt excretion of the radiotracer into the biliary tree, without evide nce of biliary dilatation or obstruction. There was no filling of the gallbladder on the 4 hour delayed images. IMPRESSION: 1. Nonvisualized gallbladder, consistent with acute cholecystitis.
[2025-02-02] VITALS (22 sets, daily range): BP systolic 104–157; BP diastolic 74–95; PULSE 83–115; RESP 14–22; TEMP 97.8–98.5; O2SAT 67–97
[2025-02-02] MEDS ORDERED: DEXTROSE (50%) 50ML SYRG IV PRN (06:30)
[2025-02-02 08:04] LABS: Anion Gap 9 (5-15); Carbon Dioxide 29 mmol/L (20-31); Chloride 100 mmol/L (98-107); Potassium 4.1 mmol/L (3.5-5.1); Sodium 138 mmol/L (136-145)
[2025-02-02 08:05] LABS: Calcium 9.2 mg/dL (8.7-10.4)
[2025-02-02 08:10] LABS: BUN/Creatinine Ratio 9.7 (10.0-20.0); Blood Urea Nitrogen 10 mg/dL (9-23)
[2025-02-02 08:12] LABS: Glucose 130 mg/dL (74-106); Hematocrit 53.2 % (41.0-53.0); Mean Corpuscular Hemoglobin 33.0 pg (28.0-32.0); Nucleated Red Blood Cells % 0.0 %
[2025-02-02 08:15] LABS: Hemoglobin 18.2 g/dL (13.5-17.5); Mean Corpuscular Volume 96.2 fL (80.0-100.0)
[2025-02-02 09:03] LABS: Free T4 (Free Thyroxine) 0.65 ng/dL (0.89-1.76)
[2025-02-02] MEDS: ENOXAPARIN SOD 40 MG/0.4 ML SYRINGE SC SCH (10:20)
[2025-02-02 10:58] LABS: Hepatitis B Surface Antigen Negative (Negative); Hepatitis C Antibody Negative (Negative)
[2025-02-02] MEDS: SODIUM CHLORIDE 0.9% 1,000 ML IV ONE (11:15)
--- NOTE | 2025-02-02 11:24 | DVH ---
CHEST RADIOGRAPH Indication: low sat on room air Technique: Single frontal view of the chest was obtained Comparison: None FINDINGS: Lines and Tubes: None Lungs: There is bilateral increased interstitial prominence. No focal consolidation. Pleura: No effusion. No pneumothorax. Cardiomediastinal contours: Unremarkable Bones: No acute osseous abnormality. IMPRESSION: 1. Pulmonary vascular congestion.
[2025-02-02] MEDS: ACCU-CHEK COMFORT CURVE STRIP VI SCH (12:00)
[2025-02-02] MEDS: InsuLIN REG 1unit/0.01ml Soln (100units/ml) SC SCH (12:00)
[2025-02-02] MEDS: LIDOCAINE W/ EPINEPHRINE 1% 20ML VIAL ONE (12:52)
[2025-02-02] MEDS: BUPIVACAINE 0.5% P/F INJ 10 ML VIAL ONE (12:52)
[2025-02-02] MEDS ORDERED: ONDANSETRON HCL 4 MG/2 ML VIAL IV PRN (13:00)
[2025-02-02] MEDS ORDERED: HYDROmorphone HCL 2 MG/ML VL/or syr IV PRN (13:00)
[2025-02-02] MEDS: ACETAMINOPHEN IV 1000 MG/100ML (10MG/ML) IV ONE (13:00)
[2025-02-02] MEDS: ACCU-CHEK COMFORT CURVE STRIP VI ONE (13:15)
--- NOTE | 2025-02-02 13:24 | DVHOP ---
DATE OF SURGERY: 02/02/2025 PREOPERATIVE DIAGNOSES: * Cholelithiasis. * Cholecystitis. POSTOPERATIVE DIAGNOSES: * Cholelithiasis. * Cholecystitis. SURGEON: Raphael Jorgensen MD TRANSPORT TECHNICIAN: Bernard Proctor NP ANESTHESIA: General endotracheal, Dr. Lynn. PROCEDURES: * Laparoscopy. * Laparoscopic cholecystectomy. DESCRIPTION OF PROCEDURE: Under general endotracheal anesthesia with the patient's skin prepped and draped, a supraumbilical incision was made and Veress needle inserted into the peritoneal cavity by the hanging drop technique in order to establish pneumoperitoneum to 15 mmHg pressure by insufflation with carbon dioxide. With the abdomen fully distended, the needle was removed and replaced with a 5 mm trocar port through which a 0-degree viewing laparoscope was inserted and under direct vision additional 5 and 10 mm ports inserted through the right anterior axillary line at the level of the umbilicus and through the subxiphoid skin in the midline respectively. Laparoscopy was performed and instrumentation was introduced. There was no evidence of unexpected pathology on the serosal surfaces visualized. The gallbladder, however, was massively enlarged and affected by exuberant cholecystitis. The distended gallbladder was aspirated of inspissated feculent-appearing bile which was sent for cultures and sensitivities. Gallbladder was placed on tension and cystic duct and cystic artery were identified, circumferentially dissected, skeletonized, and traced into the hepatocystic triangle so as to minimize the potential for inadvertent injury to the common bile duct. Cystic duct and cystic artery were then divided between metallic clips close to the gallbladder, again avoiding the possibility of injury to the common bile duct. Following division of the cystic duct and cystic artery, the gallbladder was resected from its liver bed by electrocautery and traction. The fully mobilized gallbladder was removed from the peritoneal cavity by placement in a specimen extraction bag which was withdrawn through the 10 mm port site. Subhepatic space was irrigated. Irrigant was aspirated. Hemostasis was meticulously assured and found to be complete. A 10 mm Krystian-Marin drain was placed underneath the right lobe of the liver and exteriorized through the 5 mm port site on the right flank of the patient's body and secured with a 2-0 nylon suture. The right upper quadrant was profusely irrigated. Irrigant was aspirated. Following further assurance of complete hemostasis, instrumentation was withdrawn, pneumoperitoneum was evacuated. Fascia defect closed using 0 Vicryl. Wounds approximated using Monocryl sutures, Dermabond glue, and Steri-Strips. The patient remained stable throughout the procedure and left the operating room following an accurate needle and sponge count. His , Marya, was thoroughly informed at [phone]. MD YAHIR Alba/SUNNY TID: [id number] RECEIPT: [id number]
--- NOTE | 2025-02-02 14:14 | DVHPNRES ---
Progress Note Date Seen: Feb 02, 2025 Resident Creating Document: ASPEN BATISTA RESIDENT Medical Necessity Reason Pt with a Central, PICC or Fol: No (RN) Subjective Review of Systems The patient was seen and examined at bedside. He reports having right upper quadrant pain and mild shortness of breaths due to the pain. He denies any chest pain, fever or any other complaints today. Objective vital signs Vital Sign Date Time Temp Pulse Resp B/P (MAP) Pulse Ox O2 Delivery O2 Flow Rate FiO2 02/02/25 08:24 98.3 95 18 127/80 (96) 95 98.3 02/02/25 08:00 Nasal Cannula* 3 32 Total Intake and Output 02/01/25 02/01/25 02/02/25 15:00 23:00 07:00 Intake Total 100 ml Balance 100 ml medications Current Medications Medications Dose Ordered Sig/Rolo Route Start Time Stop Time Status Last Admin Dose Admin Acetaminophen 325 mg Q4HP PRN PO 02/01/25 01:30 02/01/25 08:23 325 MG Ondansetron HCl 4 mg Q4HP PRN IV 02/01/25 01:30 02/01/25 02:39 4 MG Morphine Sulfate 2 mg Q4HPRN PRN IV 02/01/25 01:30 02/01/25 21:49 2 MG Nifedipine 60 mg DAILY PO 02/01/25 02:30 02/01/25 09:37 60 MG Ergocalciferol 50,000 unit Q7D PO 02/04/25 10:00 Diagnostic Test (Pha) 1 strip Q6HR 02/02/25 12:00 Insulin Human Regular Q6HR SC 02/02/25 12:00 Dextrose 50 ml UD PRN IV 02/02/25 06:30 Ondansetron HCl 4 mg ONCE PRN IV 02/02/25 13:00 02/02/25 13:01 UNV Hydromorphone HCl 0.5 mg Q10M PRN IV 02/02/25 13:00 02/02/25 13:41 UNV Examination Pt is lying on bed General Appearance: Alert, Oriented X3, Cooperative, Mild distress HEENT: Atraumatic, Mucous membranes moist/pink Respiratory: Clear to auscultation, Normal air movement, No added sounds Cardiovascular: Regular rate, Normal S1, Normal S2, No murmurs Abdominal/ : Active bowel sounds, Soft, no distention, right upper quadrant tenderness and Barnard sign positive Extremities: No edema, Normal pulses, No tenderness/swelling Skin: No Significant rash, except past surgical scars Neuro: Normal speech, sensorimotor deficits none Psych/Mental Status: Mental status NL, Mood NL Nurse was there as tub mender during examination laboratory and microbiology Laboratory Tests 02/02/25 06:04 Test 02/02/25 06:04 Range/Units Serum Glucose 130 H 74-106 mg/dL Microbiology Date/Time Source Procedure Growth Status 01/31/25 20:35 Blood Blood Culture - Preliminary NO GROWTH AFTER 24 HOURS OF INCUBATION. Resulted Labs and/or images reviewed: Labs reviewed by me, Image(s) reviewed by me Problem List/Assessment/Plan Problem List/Assessment/Plan # day 0 status post laparoscopic cholecystectomy # sepsis possibly due to acute cholecystitis # symptomatic cholelithiasis # rule out acute cholecystitis # hepatic steatosis # hyperbilirubinemia - gallbladder ultrasound showed Cholelithiasis with fluid and moderate gallbladder wall thickening. Diffuse hepatic steatosis. - HIDA scan: Acute cholecystitis - IV fluid D5W in LR -morphine p.r.n. for pain -Tylenol and ondansetron given for symptomatic management # diabetes mellitus - Accu-Cheks -mild insulin sliding scale # hypertension - nifedipine 60 mg p.o. daily # obesity BMI 33.6 -patient counseled on lifestyle modifications, diet, exercise for 13 minutes PPI prophylaxis: Protonix DVT prophylaxis: SCDs Case discussed with Dr. Patton, Full Code status. Plan discussed with: Patient, Other My Orders My Orders Orders - ASPEN BATISTA Procedure Category Date Status Time Echo 2d Mode Cardiac US 02/02/25 Logged DOP 10:16 Date of Service: Feb 02, 2025 Billing Provider: STEVEN PATTON MD Common Visit Codes: [id number] INP/OBS CARE(HIGH) ASPEN BATISTA Feb 02, 2025 14:14 STEVEN PATTON MD Feb 02, 2025 21:44
[2025-02-02 14:48] LABS: Base Excess -1.0 mmol/L (-2.0-3.0)
--- NOTE | 2025-02-02 14:59 | DVH ---
CHEST RADIOGRAPH Indication: post surgery Technique: Single frontal view of the chest was obtained Comparison: XY CHEST PORTABLE on DOS: 02/02/25 FINDINGS: Lines and Tubes: None Lungs: Increased bronchovascular markings in the lung bases may be due to atelectasis. Pleura: No effusion. No pneumothorax. Cardiomediastinal contours: Unremarkable Bones: No acute osseous abnormality. IMPRESSION: 1. Increased bronchovascular markings in the lung bases may be due to atelectasis.
[2025-02-02] MEDS: FUROSEMIDE 20 MG/2 ML VIAL IV ONE (15:00)
[2025-02-02 16:58] LABS: Base Excess 1.5 mmol/L (-2.0-3.0)
[2025-02-02] MEDS: FUROSEMIDE 20 MG/2 ML VIAL IV SCH (19:23)
[2025-02-03] VITALS (28 sets, daily range): BP systolic 124–167; BP diastolic 79–114; PULSE 71–99; RESP 10–29; TEMP 98.4–99.5; O2SAT 89–98
[2025-02-03 05:36] LABS: Nucleated Red Blood Cells % 0.0 %
[2025-02-03 05:37] LABS: Hematocrit 49.5 % (41.0-53.0); Hemoglobin 17.2 g/dL (13.5-17.5); Mean Corpuscular Hemoglobin 33.8 pg (28.0-32.0); Mean Corpuscular Volume 97.3 fL (80.0-100.0)
[2025-02-03 05:50] LABS: INR 1.13 (0.9-1.15); Partial Thromboplastin Time 35.3 SEC (24.5-34.5); Prothrombin Time 11.8 sec (9.3-11.8)
[2025-02-03 05:51] LABS: Albumin 3.7 g/dL (3.2-4.8)
[2025-02-03 05:52] LABS: Bilirubin, Total 0.9 mg/dL (0.2-1.0)
[2025-02-03 07:42] LABS: Alanine Aminotransferase 22 U/L (7-40); Alkaline Phosphatase 68 U/L (46-116); Anion Gap 9 (5-15); BUN/Creatinine Ratio 18.4 (10.0-20.0); Blood Urea Nitrogen 21 mg/dL (9-23); Calcium 9.3 mg/dL (8.7-10.4); Carbon Dioxide 29 mmol/L (20-31); Chloride 102 mmol/L (98-107); Magnesium 2.2 mg/dL (1.6-2.6); Potassium 4.9 mmol/L (3.5-5.1); Sodium 140 mmol/L (136-145); Total Protein 7.0 g/dL (5.7-8.2)
[2025-02-03 07:44] LABS: Glucose 147 mg/dL (74-106)
[2025-02-03 09:57] LABS: Base Excess 5.4 mmol/L (-2.0-3.0)
--- NOTE | 2025-02-03 10:38 | DVHPN2 ---
Subjective Date Seen: Feb 03, 2025 Post op day Post op day: 1 General: Normal HNT: Normal Cardiovascular: Normal Respiratory: Dyspnea Gastrointestinal: Normal Genitourinary: Normal Musculoskeletal: Normal Objective Vitals Vital Sign Date Time Temp Pulse Resp B/P (MAP) Pulse Ox O2 Delivery O2 Flow Rate FiO2 02/03/25 08:00 85 23 Bi-Pap+ 45 45 02/03/25 07:00 124/83 (97) 97 02/03/25 04:00 98.4 98.4 02/02/25 13:26 10.0 Total Intake and Output 02/02/25 02/02/25 02/03/25 15:00 23:00 07:00 Intake Total 550 ml 0 ml 0 ml Output Total 45 ml 665 ml 730 ml Balance 505 ml -665 ml -730 ml Medications Current Medications Medications Dose Ordered Sig/Rolo Route Start Time Stop Time Status Last Admin Dose Admin Acetaminophen 325 mg Q4HP PRN PO 02/01/25 01:30 02/01/25 08:23 325 MG Ondansetron HCl 4 mg Q4HP PRN IV 02/01/25 01:30 02/01/25 02:39 4 MG Morphine Sulfate 2 mg Q4HPRN PRN IV 02/01/25 01:30 02/03/25 01:24 2 MG Nifedipine 60 mg DAILY PO 02/01/25 02:30 02/01/25 09:37 60 MG Ergocalciferol 50,000 unit Q7D PO 02/04/25 10:00 Diagnostic Test (Pha) 1 strip Q6HR 02/02/25 12:00 02/03/25 05:35 1 STRIP Insulin Human Regular Q6HR SC 02/02/25 12:00 02/03/25 05:36 3 UNITS Dextrose 50 ml UD PRN IV 02/02/25 06:30 Levothyroxine Sodium 50 mcg QAM@0600 PO 02/04/25 06:00 Piperacillin Sod/ Tazobactam Sod 100 ml @ 25 mls/hr Q8HR IV 02/03/25 14:00 General: Mild distress Head/Eyes: Normal ENT: Normal Neck: Normal Lungs: On oxygen Cardiovascular: Normal Abdominal: Normal Skin: Normal Labs and Microbiology Laboratory Tests 02/03/25 05:15 Test 02/03/25 05:15 Range/Units Serum Glucose 147 H 74-106 mg/dL Ass/Plan Labs and/or images reviewed: Labs reviewed by me, Image(s) reviewed by me Problem List # day 0 status post laparoscopic cholecystectomy # sepsis possibly due to acute cholecystitis # symptomatic cholelithiasis # rule out acute cholecystitis # hepatic steatosis # hyperbilirubinemia - gallbladder ultrasound showed Cholelithiasis with fluid and moderate gallbladder wall thickening. Diffuse hepatic steatosis. - HIDA scan: Acute cholecystitis - IV fluid D5W in LR -morphine p.r.n. for pain -Tylenol and ondansetron given for symptomatic management # diabetes mellitus - Accu-Cheks -mild insulin sliding scale # hypertension - nifedipine 60 mg p.o. daily # obesity BMI 33.6 -patient counseled on lifestyle modifications, diet, exercise for 13 minutes PPI prophylaxis: Protonix DVT prophylaxis: SCDs Case discussed with Dr. Patton, Full Code status. Assessment/Plan no new complaints abdomen, soft, non distended, approximately tender ON CPAP blood gas acidotic Plan: Patient to ambulate when able pulmonary consult continue IV hydration and antibiotics Prognosis: Good Plan discussed with patient, Dr. Jorgensen Visit Coding Surgery Date of Service if different f: Feb 03, 2025 Billing Provider: SARAHI JORGENSEN MD Surgery Visit Codes: [id number] INP/OBS CARE(HIGH) PHOEBE SHIELDS ENERGY TRADER Feb 03, 2025 10:38
[2025-02-03] MEDS: LEVOTHYROXINE SODIUM 50 MCG TAB PO ONE (10:45)
[2025-02-03] MEDS: PIPERACILLIN-TAZOB 3.375GM 100 ML IV SCH (14:15)
--- NOTE | 2025-02-03 14:42 | DVHINCON2 ---
Date of service: Feb 03, [address] Jorgensen Reason for Consultation Acute respiratory failure History of Present Illness History Source: Patient Exam Limitations: No limitations HPI Patient is a 44-year old gentleman with a history of nicotine dependency who presented with abdominal pain. Was seen in the emergency room where ultrasound of the gallbladder demonstrated cholelithiasis and subsequently underwent cholecystectomy. After the procedure, patient was found to be hypoxemic and required bipap overnight, pulmonology was consulted to assist in management. Home Meds Reported Medications Metformin Hydrochloride (Metformin Hcl) 1,000 Mg Tab, 1 TAB PO BID, #180 TAB 1 Refill 02/01/25 Past Medical History Cardiac: No pertinent Hx Pulmonary: No pertinent Hx Central Nervous System: No pertinent Hx GI: No pertinent Hx Hemotology/Oncology: No pertinent Hx Hepatobiliary: No pertinent Hx Psychiatric: No pertinent Hx Musculoskeletal: No pertinent Hx Rheumotologic: No pertinent Hx Infectious Disease: No peritnent Hx ENT: No pertinent Hx Renal/: No pertinent Hx Endocrine: No pertinent Hx Dermatology: No pertinent Hx Past Surgical History: Cholecystectomy Family History: No pertinent Hx Patient Family History: GI disorder Smoker: Positive Alocohol: None Drugs: None Domestic Violence: Neg Review of Systems Constitutional: No symptom reported Ears, Nose, & Throat: No symptom reported Eyes: No symptom reported Pulmonary/Respiratory: No symptom reported Cardiovascular: No symptom reported Gastrointestinal: Abdominal Pain Genitourinary: No symptom reported Musculoskeletal: No symptom reported Skin: No symptom reported Psychiatric: No symptom reported Endocrine: No symptom reported Hemotologic/Lymphatic: No symptom reported H&P Exam Vital Signs Vital Signs Date Time Temp Pulse Resp B/P (MAP) Pulse Ox O2 Delivery O2 Flow Rate FiO2 02/03/25 13:01 93 24 138/90 02/03/25 13:00 95 02/03/25 12:00 99.5 99.5 02/03/25 09:40 Nasal Cannula* 4 50 Bi-Pap+ 50 General Appeara: Well developed, Well nourished, Normal Appearance Head Exam: Normal inspection Neck Exam: Normal inspection, Non-tender, Normal alignment Eye Exam: bilateral eye Normal inspection, bilateral eye PERRL, bilateral eye EOMI Ear Exam: bilateral ear Auricle normal, bilateral ear Canal normal, bilateral ear TM normal Nasal Exam: Normal inspection Mouth: Normal Inspection Pulmonary/Respiratory: Decreased breath sounds Cardiovascular/Chest: Normal inspection Peripheral Pulses: 4+ dorsalis pedis (L), 4+ Radial (R), 4+ Radial (L), 4+ Brachial (R), 4+ Brachial (L) Labs/Xrays Labs Test 02/03/25 11:48 02/03/25 10:51 02/03/25 07:40 02/03/25 05:15 Range/Units POC Glucose 155 H 70-106 mg/dl Blood Gas Specimen Type Arterial Blood Gas Sample Site Left brachial Blood Gas Patient Temperature 37.0 Arterial Blood Date Drawn [id number] Arterial Blood pH 7.402 7.350-7.450 Arterial Blood Partial Pressure CO2 52.6 H 35.0-48.0 mmHg Arterial Blood Partial Pressure O2 81.3 L 83.0-108.0 mmHg Arterial Blood HCO3 32.0 H 21.0-28.0 mmol/L Arterial Blood Oxygen Saturation 95.7 94.0-98.0 % Arterial Blood Base Excess 5.4 H -2.0-3.0 mmol/L Arterial Blood Oxyhemoglobin 94.7 94.0-98.0 % Arterial Blood Carboxyhemoglobin 0.5 0.5-1.5 % Arterial Blood Methemoglobin 0.5 0.0-1.5 % Chris Test N/a Blood Gas Total Hemoglobin 18.10 *H 13.5-17.5 g/dL Blood Gas Set Respiration Rate 14.0 Blood Gas Modality Mask - bipap Blood Gas Spontaneous Rate 28 FiO2 % 45.0 Blood Gas EPAP 5 Blood Gas IPAP 12 Blood Gas Critical Value Read Back Yes Blood Gas Notified Whom Gina arredondo Blood Gas Notified Time [id number] Blood Gas Notified By Tiffani gan White Blood Count 13.0 H 4.4-10.8 10^3/uL Red Blood Count 5.09 4.5-5.90 10^6/uL Hemoglobin 17.2 13.5-17.5 g/dL Hematocrit 49.5 41.0-53.0 % Mean Corpuscular Volume 97.3 80.0-100.0 fL Mean Corpuscular Hemoglobin 33.8 H 28.0-32.0 pg Mean Corpuscular Hemoglobin Concent 34.8 32.0-36.0 g/dL Red Cell Distribution Width 15.8 H 11.8-14.3 % Platelet Count 203 140-450 10^3/uL Mean Platelet Volume 9.1 6.9-10.8 fL Neutrophils (%) (Auto) 87.8 H 37.0-80.0 % Lymphocytes (%) (Auto) 3.9 L 10.0-50.0 % Monocytes (%) (Auto) 8.2 0.0-12.0 % Eosinophils (%) (Auto) 0.0 0.0-7.0 % Basophils (%) (Auto) 0.1 0.0-2.0 % Neutrophils # (Auto) 11.4 H 1.6-8.6 10 ^3/uL Lymphocytes # (Auto) 0.5 0.4-5.4 10 ^3/uL Monocytes # (Auto) 1.1 0-1.3 10 ^3/uL Eosinophils # (Auto) 0 0-0.8 10 ^3/uL Basophils # (Auto) 0 0-0.2 10 ^3/uL Nucleated Red Blood Cells 0.0 % Prothrombin Time 11.8 9.3-11.8 sec Prothrombin Time INR 1.13 0.9-1.15 Activated Partial Thromboplast Time 35.3 H 24.5-34.5 SEC Sodium Level 140 136-145 mmol/L Potassium Level 4.9 3.5-5.1 mmol/L Chloride Level 102 98-107 mmol/L Carbon Dioxide Level 29 20-31 mmol/L Anion Gap 9 5-15 Blood Urea Nitrogen 21 # 9-23 mg/dL Creatinine 1.14 0.700-1.30 mg/dL Glomerular Filtration Rate Calc 82 >90 mL/min BUN/Creatinine Ratio 18.4 10.0-20.0 Serum Glucose 147 H 74-106 mg/dL Lactic Acid Level 1.3 0.4-2.0 mmol/L Calcium Level 9.3 8.7-10.4 mg/dL Phosphorus Level 4.0 2.4-5.1 mg/dL Magnesium Level 2.2 1.6-2.6 mg/dL Total Bilirubin 0.9 0.2-1.0 mg/dL Aspartate Amino Transferase (AST) 19 13-40 U/L Alanine Aminotransferase (ALT) 22 7-40 U/L Alkaline Phosphatase 68 46-116 U/L Total Protein 7.0 5.7-8.2 g/dL Albumin 3.7 3.2-4.8 g/dL Test 02/02/25 06:04 02/01/25 09:13 02/01/25 03:47 01/31/25 23:45 Range/Units Free Thyroxine (T4) Calculated 0.65 L 0.89-1.76 ng/dL Total Triiodothyronine (TT3) 0.52 L 0.60-1.81 ng/mL Vitamin D 25-Hydroxy 8.4 L 30.0-100 ng/mL Erythrocyte Sedimentation Rate 6 0-20 mm/hr Hemoglobin A1c 6.6 H <5.7 % A1C C-Reactive Protein High Sensitivity 14.52 H <1.0 mg/dL Thyroid Stimulating Hormone (TSH) 27.24 H 0.55-4.78 uIU/mL Hepatitis B Surface Antigen Negative Negative Hepatitis C Antibody Negative Negative Urine Color Yellow Yellow Urine Clarity Clear Clear Urine pH 6.0 5.0-9.0 Urine Specific Vivian 1.021 1.001-1.035 Urine Protein 2+ H Negative Urine Ketones Negative Negative Urine Blood Negative Negative /uL Urine Nitrite Negative Negative Urine Bilirubin Negative Negative Urine Urobilinogen Normal Negative mg/dL Urine Leukocyte Esterase Negative Negative /uL Urine RBC None seen 0 - 3 /hpf Urine Microscopic WBC 2 0-3 /HPF Urine Squamous Epithelial Cells None seen <5 /hpf Urine Bacteria None seen None Seen /hpf Urine Mucus Few None Seen Urine Glucose Normal Normal mg/dL Urine Opiates Screen Pos NEGATIVE Urine Fentanyl Screen Neg NEGATIVE Urine Barbiturates Screen Neg NEGATIVE Urine Phencyclidine Screen Neg NEGATIVE Urine Amphetamines Screen Neg NEGATIVE Urine Benzodiazepines Screen Neg NEGATIVE Urine Cocaine Screen Neg NEGATIVE Urine Cannabinoids Screen Neg NEGATIVE Test 01/31/25 18:41 Range/Units Lipase 33 12-53 U/L Microbiology Date/Time Source Procedure Growth Status 02/02/25 12:33 Abdomen Gram Stain Pending Resulted 02/02/25 12:33 Abdomen Anaerobic Culture - Preliminary Resulted 02/02/25 12:33 Abdomen Aerobic Culture - Preliminary Resulted 01/31/25 20:35 Blood Blood Culture - Preliminary NO GROWTH AFTER 48 HOURS OF INCUBATION. Resulted Assessment/Plan Plan Impression Acute hypoxemic respiratory failure S/p laparoscopic cholecystectomy Suspected CLIVE Smoker Patient seen and examined in GARY Events High oxygen requirements Required bipap overnight Respiratory status tenuous Labs and imaging reviewed ABG reviewed pH 7.40, pCO2 53, pO2 81 Management Supplemental oxygen Titrate to maintain sats 90% or above Incentive spirometry Prn bipap 05/06 To use mostly at night and during sleep Patient may have CLIVE Titrate to comfort Antibiotics Bronchodilators Monitor renal function Monitor electrolytes Supplement as needed Pain control Avoid oversedation Recommend follow up and further workup when more stable DVT prophylaxis Critical care time 35 minutes Plan discussed with: Patient MAYTE GANNON MD Feb 03, 2025 14:42
[2025-02-03] MEDS ORDERED: ACETAMINOPHEN 325 MG TAB PO PRN (16:00)
[2025-02-03] MEDS: MORPHINE SULFATE INJ 2 MG/ml SYRG IV PRN (17:38)
--- NOTE | 2025-02-03 18:47 | DVHPNRES ---
Progress Note Date Seen: Feb 03, 2025 Resident Creating Document: DONAL MAXWELL RESIDENT Medical Necessity Reason Pt with a Central, PICC or Fol: No (RN) Subjective Review of Systems Ferdinand Hong is a 44-year-old male who presents to the ED with chief complaint of right upper quadrant and epigastric tenderness which is 10/10 intensity and radiating to the back associated with nausea, 1 episode of vomiting which started four days before his admission, aggravated by food and partially relieved by ibuprofen and fasting. Patient denies any diarrhea, fever, chills, headache, dizziness, dysuria, hematuria, blood in the stool. Past medical history: Diabetes, hypertension, dyslipidemia, obese Past surgical history: Denies Family History: Noncontributory Social history: Lives with family in [place] (next o kin ). Current smoker (5-6 cigarettes per day a proximally 10 pack-year history of smoking), drinks 5 beers per week, denies any drug use Allergies: Denies Home medication: Metformin a 1000 mg p.o. b.i.d. The patient was seen and examined at bedside. Currently status post cholecystectomy via laparoscopy. Patient was status GARY due to acute respiratory failure post surgery, responding to BIPAP and IV diuretics. Currently patient is onnasal cannula at 3 L/m. Downgrade to Telemetry Objective vital signs Vital Sign Date Time Temp Pulse Resp B/P (MAP) Pulse Ox O2 Delivery O2 Flow Rate FiO2 02/03/25 17:55 146/97 (113) 02/03/25 17:38 90 24 02/03/25 17:30 89 02/03/25 16:00 99.4 99.4 02/03/25 09:40 Nasal Cannula* 4 50 Bi-Pap+ 50 Total Intake and Output 02/02/25 02/02/25 02/03/25 15:00 23:00 07:00 Intake Total 550 ml 0 ml 0 ml Output Total 45 ml 665 ml 730 ml Balance 505 ml -665 ml -730 ml medications Current Medications Medications Dose Ordered Sig/Rolo Route Start Time Stop Time Status Last Admin Dose Admin Ondansetron HCl 4 mg Q4HP PRN IV 02/01/25 01:30 02/01/25 02:39 4 MG Nifedipine 60 mg DAILY PO 02/01/25 02:30 02/03/25 10:44 60 MG Ergocalciferol 50,000 unit Q7D PO 02/04/25 10:00 Diagnostic Test (Pha) 1 strip Q6HR 02/02/25 12:00 02/03/25 17:41 1 STRIP Insulin Human Regular Q6HR SC 02/02/25 12:00 02/03/25 17:45 2 UNITS Dextrose 50 ml UD PRN IV 02/02/25 06:30 Levothyroxine Sodium 50 mcg QAM@0600 PO 02/04/25 06:00 Piperacillin Sod/ Tazobactam Sod 100 ml @ 25 mls/hr Q8HR IV 02/03/25 14:00 02/03/25 14:15 25 MLS/HR Morphine Sulfate 4 mg Q4HPRN PRN IV 02/03/25 15:30 02/03/25 17:38 4 MG Acetaminophen 650 mg TID PO 02/03/25 22:00 Acetaminophen 325 mg Q4HP PRN PO 02/03/25 16:00 Examination Patient lying in bed, in no acute distress General: Lucid, afebrile, mucosae are moist Cardiovascular: Normal S1 and S2. No murmurs, gallops or rubs Respiratory: Regular ventilation mechanics. Clear lung sounds on auscultation. Currently on nasal cannula 3 L/min. Abdomen: Soft, mild tenderness in surgical incision site in epigastrium, rest of abdomen nontender, no organomegaly, reduced bowel sounds. JERMAINE drainage on right lower quadrant with serous-hematic fluid 10 mL MSK/skin: Mobilizes 4 limbs. Skin is dry and warm. Mild petechia on anterior chest Neurological: Oriented in 3 spheres. No motor no sensitive deficits. Pupils are isocoric and reactive laboratory and microbiology Laboratory Tests 02/03/25 05:15 Test 02/03/25 05:15 Range/Units Serum Glucose 147 H 74-106 mg/dL Microbiology Date/Time Source Procedure Growth Status 02/02/25 12:33 Abdomen Gram Stain Pending Resulted 02/02/25 12:33 Abdomen Anaerobic Culture - Preliminary Resulted 02/02/25 12:33 Abdomen Aerobic Culture - Preliminary Resulted 01/31/25 20:35 Blood Blood Culture - Preliminary NO GROWTH AFTER 48 HOURS OF INCUBATION. Resulted Problem List/Assessment/Plan Problem List/Assessment/Plan # Sepsis secondary to acute cholecystitis # Acute cholecystitis - s/p cholecystectomy via laparoscopy # Hepatic steatosis # Hyperbilirubinemia -Gallbladder ultrasound showed Cholelithiasis with fluid and moderate gallbladder wall thickening. Diffuse hepatic steatosis. -HIDA scan ordered, results pending -Surgery consulted: Completed laparoscopic cholecystectomy. -Currently patient is on clear liquid diet -Physical therapy on board -Requiring IV fluid resuscitation. -Currently under empiric IV antibiotics (Zosyn) -Pending culture results (blood in surgical) # Acute respiratory failure secondary to flash pulmonary edema # Hypercapnia respiratory failure - probably chronic # Questionable obesity hyperventilation syndrome -Patient presented during immediate postop acute respiratory failure requiring BiPAP. Was status GARY for 24 hours -Currently on oxygen therapy with nasal cannula 3 L/min -Indicated incentive spirometer # Hypertensive urgency -Patient has history of hypertension but was controlled with lifestyle habits. -Was admitted with systolic blood pressure of 240 mmHg. Has no signs of end- organ damage -Started nifedipine # Newly diagnosed hypothyroidism -TSH above 20 in low free T4 and total T3 -Initiated levothyroxine 50 mcg p.o. daily # Diabetes mellitus # Hypertension -Accu-Cheks -On mild insulin sliding scale -Gave advice on healthy lifestyle habits # Obesity BMI 33.6 -Patient counseled on lifestyle modifications, diet, exercise for 13 minutes -Questionably secondary to hypothyroidism. Initiated treatment Goals of care discussed with patient for over 18 minutes: Full code status Case discussed with Dr. Patton, patient and nurses: Patient currently on nasal cannula 3 L, on empiric IV antibiotic, tolerating clear liquid diet. Patient is in condition to be downgraded to telemetry. Plan discussed with: Patient, Other (Nurses) My Orders My Orders Orders - DONAL MAXWELL RESIDENT Procedure Category Date Status Time Abg W/ Co-Ox RT 02/03/25 Logged 04:00 Levothyroxine Tablet PHA 02/04/25 In Process (Synthroid Tablet) 06:00 Antithyroglobulin LAB 02/03/25 In Process Antibody 09:17 Thyroid Peroxidase LAB 02/03/25 In Process (Tpo) Ab 09:17 Piperacillin-Tazob PHA 02/03/25 In Process 3.375gm (Zosyn 3.375g 14:00 Incentive Spirometry ORDERS 02/03/25 Transmitted 11:13 Clear Liq Diet DIET 02/03/25 Transmitted Lunch Pt Request For Service PT 02/03/25 Logged 11:13 Discontinue Webster BINH 02/03/25 In Process Catheter 17:56 Transfer Orders XFER 02/03/25 Verified 18:45 Complete Blood Count LAB 02/04/25 Verified 04:00 Basic Metabolic Panel LAB 02/04/25 Verified 04:00 DONAL MAXWELL RESIDENT Feb 03, 2025 18:47
--- NOTE | 2025-02-03 20:41 | DVH ---
CHEST RADIOGRAPH Indication: SOB Technique: Single frontal view of the chest was obtained Comparison: XY CHEST XRAY 1 VIEW on DOS: 02/02/25, XY CHEST PORTABLE on DOS: 02/02/25 FINDINGS: Lines and Tubes: None Lungs: Suboptimal inspiratory effort with atelectasis above the right diaphragm. Pleura: No effusion. No pneumothorax. Cardiomediastinal contours: Unremarkable Bones: No acute osseous abnormality. IMPRESSION: 1. Suboptimal inspiratory effort with atelectasis above the right diaphragm.
[2025-02-03] MEDS ORDERED: KETOROLAC TROMETH 30 MG/ML 1ML VIAL IV PRN (21:15)
[2025-02-03] MEDS: ACETAMINOPHEN 325 MG TAB PO SCH (21:51)
[2025-02-04] VITALS (16 sets, daily range): BP systolic 121–145; BP diastolic 87–93; PULSE 80–97; RESP 16–21; TEMP 96.9–99.1; O2SAT 83–99
[2025-02-04] MEDS: LEVALBUTEROL HCL 1.25 MG/3 ML NEB NEB SCH (00:56)
[2025-02-04] MEDS: IPRATROPIUM BROM 0.5 MG/2.5ML INH SOL NEB SCH (00:57)
[2025-02-04] MEDS: LEVOTHYROXINE SODIUM 50 MCG TAB PO SCH (06:40)
[2025-02-04 07:09] LABS: Anion Gap 5 (5-15); Hematocrit 49.1 % (41.0-53.0); Hemoglobin 16.9 g/dL (13.5-17.5); Mean Corpuscular Hemoglobin 33.7 pg (28.0-32.0); Mean Corpuscular Volume 97.5 fL (80.0-100.0); Nucleated Red Blood Cells % 0.2 %; Potassium 4.5 mmol/L (3.5-5.1)
[2025-02-04 07:10] LABS: Calcium 9.2 mg/dL (8.7-10.4)
[2025-02-04 07:15] LABS: BUN/Creatinine Ratio 22.8 (10.0-20.0); Blood Urea Nitrogen 18 mg/dL (9-23)
[2025-02-04 07:19] LABS: Carbon Dioxide 33 mmol/L (20-31); Chloride 98 mmol/L (98-107); Glucose 125 mg/dL (74-106); Sodium 136 mmol/L (136-145)
[2025-02-04] MEDS: ERGOCALCIFEROL 50,000 UNIT(1.25MG) CAP PO SCH (11:57)
[2025-02-04] MEDS: ENOXAPARIN SOD 40 MG/0.4 ML SYRINGE SC SCH (11:58)
[2025-02-04] MEDS ORDERED: NIFE1TAB31 PO (14:34)
[2025-02-04] MEDS ORDERED: AUG875T PO (14:34)
[2025-02-04] MEDS ORDERED: HYDR1TAB97 PO (14:34)
--- NOTE | 2025-02-04 14:38 | DVHDS2 ---
Discharge Summary Date of Admission Feb 01, 2025 at 01:28 Date of Discharge: Feb 04, 2025 Labs/Diagnostic Data: Laboratory Results Test 02/04/25 06:51 02/04/25 05:58 02/03/25 10:51 02/03/25 07:40 POC Glucose 148 mg/dl (70-106) White Blood Count 12.1 10^3/uL (4.4-10.8) Red Blood Count 5.04 10^6/uL (4.5-5.90) Hemoglobin 16.9 g/dL (13.5-17.5) Hematocrit 49.1 % (41.0-53.0) Mean Corpuscular Volume 97.5 fL (80.0-100.0) Mean Corpuscular Hemoglobin 33.7 pg (28.0-32.0) Mean Corpuscular Hemoglobin Concent 34.5 g/dL (32.0-36.0) Red Cell Distribution Width 15.5 % (11.8-14.3) Platelet Count 225 10^3/uL (140-450) Mean Platelet Volume 9.7 fL (6.9-10.8) Neutrophils (%) (Auto) 83.6 % (37.0-80.0) Lymphocytes (%) (Auto) 6.8 % (10.0-50.0) Monocytes (%) (Auto) 8.8 % (0.0-12.0) Eosinophils (%) (Auto) 0.6 % (0.0-7.0) Basophils (%) (Auto) 0.2 % (0.0-2.0) Neutrophils # (Auto) 10.1 10 ^3/uL (1.6-8.6) Lymphocytes # (Auto) 0.8 10 ^3/uL (0.4-5.4) Monocytes # (Auto) 1.1 10 ^3/uL (0-1.3) Eosinophils # (Auto) 0.1 10 ^3/uL (0-0.8) Basophils # (Auto) 0 10 ^3/uL (0-0.2) Nucleated Red Blood Cells 0.2 % Sodium Level 136 mmol/L (136-145) Potassium Level 4.5 mmol/L (3.5-5.1) Chloride Level 98 mmol/L (98-107) Carbon Dioxide Level 33 mmol/L (20-31) Anion Gap 5 (5-15) Blood Urea Nitrogen 18 mg/dL (9-23) Creatinine 0.79 mg/dL (0.700-1.30) Glomerular Filtration Rate Calc 113 mL/min (>90) BUN/Creatinine Ratio 22.8 (10.0-20.0) Serum Glucose 125 mg/dL (74-106) Calcium Level 9.2 mg/dL (8.7-10.4) Thyroid Peroxidase Antibodies 162 IU/mL (0-34) Blood Gas Specimen Type Arterial Blood Gas Sample Site Left brachial Blood Gas Patient Temperature 37.0 Arterial Blood Date Drawn [id number] Arterial Blood pH 7.402 (7.350-7.450) Arterial Blood Partial Pressure CO2 52.6 mmHg (35.0-48.0) Arterial Blood Partial Pressure O2 81.3 mmHg (83.0-108.0) Arterial Blood HCO3 32.0 mmol/L (21.0-28.0) Arterial Blood Oxygen Saturation 95.7 % (94.0-98.0) Arterial Blood Base Excess 5.4 mmol/L (-2.0-3.0) Arterial Blood Oxyhemoglobin 94.7 % (94.0-98.0) Arterial Blood Carboxyhemoglobin 0.5 % (0.5-1.5) Arterial Blood Methemoglobin 0.5 % (0.0-1.5) Chris Test N/a Blood Gas Total Hemoglobin 18.10 g/dL (13.5-17.5) Blood Gas Set Respiration Rate 14.0 Blood Gas Modality Mask - bipap Blood Gas Spontaneous Rate 28 FiO2 % 45.0 Blood Gas EPAP 5 Blood Gas IPAP 12 Blood Gas Critical Value Read Back Yes Blood Gas Notified Whom Gina arredondo Blood Gas Notified Time [id number] Blood Gas Notified By Tiffani death surveys coder Test 02/03/25 05:15 02/02/25 06:04 02/01/25 09:13 02/01/25 03:47 Prothrombin Time 11.8 sec (9.3-11.8) Prothrombin Time INR 1.13 (0.9-1.15) Activated Partial Thromboplast Time 35.3 SEC (24.5-34.5) Lactic Acid Level 1.3 mmol/L (0.4-2.0) Phosphorus Level 4.0 mg/dL (2.4-5.1) Magnesium Level 2.2 mg/dL (1.6-2.6) Total Bilirubin 0.9 mg/dL (0.2-1.0) Aspartate Amino Transferase (AST) 19 U/L (13-40) Alanine Aminotransferase (ALT) 22 U/L (7-40) Alkaline Phosphatase 68 U/L (46-116) Total Protein 7.0 g/dL (5.7-8.2) Albumin 3.7 g/dL (3.2-4.8) Free Thyroxine (T4) Calculated 0.65 ng/dL (0.89-1.76) Total Triiodothyronine (TT3) 0.52 ng/mL (0.60-1.81) Vitamin D 25-Hydroxy 8.4 ng/mL (30.0-100) Erythrocyte Sedimentation Rate 6 mm/hr (0-20) Hemoglobin A1c 6.6 % A1C (<5.7) C-Reactive Protein High Sensitivity 14.52 mg/dL (<1.0) Thyroid Stimulating Hormone (TSH) 27.24 uIU/mL (0.55-4.78) Hepatitis B Surface Antigen Negative (Negative) Hepatitis C Antibody Negative (Negative) Test 01/31/25 23:45 01/31/25 18:41 Urine Color Yellow (Yellow) Urine Clarity Clear (Clear) Urine pH 6.0 (5.0-9.0) Urine Specific Russell 1.021 (1.001-1.035) Urine Protein 2+ (Negative) Urine Ketones Negative (Negative) Urine Blood Negative /uL (Negative) Urine Nitrite Negative (Negative) Urine Bilirubin Negative (Negative) Urine Urobilinogen Normal mg/dL (Negative) Urine Leukocyte Esterase Negative /uL (Negative) Urine RBC None seen /hpf (0 - 3) Urine Microscopic WBC 2 /HPF (0-3) Urine Squamous Epithelial Cells None seen /hpf (<5) Urine Bacteria None seen /hpf (None Seen) Urine Mucus Few (None Seen) Urine Glucose Normal mg/dL (Normal) Urine Opiates Screen Pos (NEGATIVE) Urine Fentanyl Screen Neg (NEGATIVE) Urine Barbiturates Screen Neg (NEGATIVE) Urine Phencyclidine Screen Neg (NEGATIVE) Urine Amphetamines Screen Neg (NEGATIVE) Urine Benzodiazepines Screen Neg (NEGATIVE) Urine Cocaine Screen Neg (NEGATIVE) Urine Cannabinoids Screen Neg (NEGATIVE) Lipase 33 U/L (12-53) Other Laboratory Tests 02/04/25 05:58 Brief Hx & Hospital Course: Ferdinand Hong is a 44-year-old male who presents to the ED with chief complaint of right upper quadrant and epigastric tenderness which is 10/10 intensity and radiating to the back associated with nausea, 1 episode of vomiting which started four days before his admission, aggravated by food and partially relieved by ibuprofen and fasting. Patient denies any diarrhea, fever, chills, headache, dizziness, dysuria, hematuria, blood in the stool. received iv abx, see nby surg, had lap nakita. now improved, initially hypoxic, improved with incentive vinod. need sleep study possible CLIVE Condition at Discharge: Good Final Diagnosis/Problems List cholecystitis s/p lap nakita sepsis clive htn hepatic steatosis Discharge Disposition: Home Discharge Instruct/Medications Diet: See Comment Diet comment: soft Activity: No Restrictions, As Tolerated Follow Up/Referral: surg dc clinic pcp sleep study Scheduled Amoxicillin & Pot Clavulanate (Augmentin Tablet), 875 MG PO BID Metformin Hydrochloride (Metformin Hcl), 1 TAB PO BID, (Reported) Nifedipine (Nifedipine Er), 60 MG PO DAILY Scheduled PRN Hydrocodone-Acetaminophen (Hydrocodone/Acetaminophen 5-325 mg), 1 TAB PO Q8HP PRN Discharge Statement: "Patient was advised to return to the ER or call 911 if any headaches, dizziness, shortness of breath, chest pain, abdominal pain, bleeding, fevers, or worsening of medical condition. Patient was counseled about treatment plan, medications, possible side effects, patientverbalized understanding. All questions were answered to the best of my ability. This discharge took greater then 30 minutes in planning, reviewing documentation, counseling the patient, and discussing with other team members." ASSESSMENT ASSESSMENT Assessment cholecystitis s/p lap nakita Date of Service: Feb 04, 2025 Billing Provider: STEVEN POSADAS MD Common Visit Codes: 42440-SNB/OBS DISCH DAY >30min STEVEN POSADAS MD Feb 04, 2025 14:38
[2025-02-04] MEDS ORDERED: KETOROLAC TROMETH 30 MG/ML 1ML VIAL IV PRN (18:00)
[2025-02-04] MEDS: KETOROLAC TROMETH 30 MG/ML 1ML VIAL IV SCH (18:16)
--- NOTE | 2025-02-04 19:31 | DVH ---
EXAM: XY CHEST XRAY 1 VIEW TECHNIQUE: Single frontal chest radiograph CLINICAL HISTORY: SOB COMPARISON: XY CHEST XRAY 1 VIEW on DOS: 02/03/25, XY CHEST XRAY 1 VIEW on DOS: 02/02/25, XY CHEST PORTAB LE on DOS: 02/02/25 Findings/Impression: Frontal chest radiograph demonstrates no acute osseous or superficial soft tissue abnormalities. The trachea is midline. Borderline cardiomegaly. Low lung volumes bronchovascular crowding. Right basilar atelectasis. No pneumothorax, pleural effusions, or consolidations.
--- NOTE | 2025-02-04 19:45 | DVHSR ---
APPROVED REPORT EXAM: Two-dimensional and M-mode echocardiogram with Doppler and color Doppler. Blood Pressure: 142/92 mmHg INDICATION SOB RISK FACTORS Obesity: Height: 5'6", Weight: 203 DIMENSIONS LVDd4.7 (3.8-5.7cm)LA (2D)3.1 (1.9-4.0cm)Aortic Root3.5 (2.0-3.7cm) LVDs3.1 (2.5-4.0cm)LA (MM) (1.9-4.0cm)Aortic Cusp Exc1.7 (1.5-2.0cm) EF (%) 60.0 (55-70%)Rt. Atrium3.9 (1.9-4.0cm)Asc. Aorta cm IVSd1.4 (0.7-1.1cm)RV (D) (1.8-2.4cm) PWd1.5 (0.7-1.1cm) Mitral Valve MitralMitral Stenosis E wave0.90m/sMV Mean GR.mmHg A wave0.91m/sMV Peak GR.mmHg E/A ratio1.02D MVAcm2 DECEL [id number] 1/2 Timems Aortic Valve Aortic ValveAortic Stenosis V11.04m/Myles Mean GR.5mmHg V21.62m/Myles Peak GR.10mmHg LVOT Diameter2.2 (1.8-2.4cm)Doppler AVA2.44cm2 Pulmonic Valve V21.41m/s Tricuspid Valve TR Velocity3.57m/s [id number] Conclusion MODERATE DEGREE LVH AND MODERATE DEGREE LV DIASTOLIC DYSFUNCTION LV EF IS 65% AND IS NORMAL SLIGHTLY DILATED LA MODERATELY DILATED RV NORMAL VALVES MODERATELY SEVERE PULMONARY HYPERTENSION RVSP IS 59 MM OF HG AND IS VERY HIGH NO EFFUSION
[2025-02-05] VITALS (16 sets, daily range): BP systolic 117–139; BP diastolic 75–85; PULSE 63–91; RESP 14–21; TEMP 97.4–98.7; O2SAT 93–99
--- NOTE | 2025-02-05 09:56 | DVHPNRES ---
Progress Note Date Seen: Feb 05, 2025 Resident Creating Document: ASPEN BATISTA RESIDENT Medical Necessity Reason Pt with a Central, PICC or Fol: No (RN) Subjective Review of Systems Ferdinand Hong is a 44-year-old male who presents to the ED with chief complaint of right upper quadrant and epigastric tenderness which is 10/10 intensity and radiating to the back associated with nausea, 1 episode of vomiting which started four days before his admission, aggravated by food and partially relieved by ibuprofen and fasting. Patient denies any diarrhea, fever, chills, headache, dizziness, dysuria, hematuria, blood in the stool. Past medical history: Diabetes, hypertension, dyslipidemia, obese Past surgical history: Denies Family History: Noncontributory Social history: Lives with family in [place] (next o kin ). Current smoker (5-6 cigarettes per day a proximally 10 pack-year history of smoking), drinks 5 beers per week, denies any drug use Allergies: Denies Home medication: Metformin a 1000 mg p.o. b.i.d. The patient was seen and examined at bedside. Currently status post cholecystectomy via laparoscopy. The patient was on intermittent BiPAP, 4 L oxygen by nasal cannula, he denies any shortness of breath on oxygen, patient desaturates when off of oxygen therapy or when he ambulates. Continue with oxygen therapy at this time, and suggest continue with incentive spirometer. Objective vital signs Vital Sign Date Time Temp Pulse Resp B/P (MAP) Pulse Ox O2 Delivery O2 Flow Rate FiO2 02/05/25 08:00 83 18 97 Nasal Cannula* 4 36 02/05/25 05:00 98.3 124/81 (95) 98.3 Total Intake and Output 02/04/25 02/04/25 02/05/25 15:00 23:00 07:00 Intake Total 230 ml 955 ml 560 ml Output Total 600 ml Balance 230 ml 355 ml 560 ml medications Current Medications Medications Dose Ordered Sig/Rolo Route Start Time Stop Time Status Last Admin Dose Admin Ondansetron HCl 4 mg Q4HP PRN IV 02/01/25 01:30 02/01/25 02:39 4 MG Nifedipine 60 mg DAILY PO 02/01/25 02:30 02/04/25 11:58 60 MG Ergocalciferol 50,000 unit Q7D PO 02/04/25 10:00 02/04/25 11:57 50,000 UNIT Diagnostic Test (Pha) 1 strip Q6HR 02/02/25 12:00 02/05/25 06:17 1 STRIP Insulin Human Regular Q6HR SC 02/02/25 12:00 02/05/25 06:17 3 UNITS Dextrose 50 ml UD PRN IV 02/02/25 06:30 Levothyroxine Sodium 50 mcg QAM@0600 PO 02/04/25 06:00 02/05/25 06:15 50 MCG Piperacillin Sod/ Tazobactam Sod 100 ml @ 25 mls/hr Q8HR IV 02/03/25 14:00 02/05/25 06:15 25 MLS/HR Morphine Sulfate 4 mg Q4HPRN PRN IV 02/03/25 15:30 02/04/25 06:41 4 MG Acetaminophen 650 mg TID PO 02/03/25 22:00 02/05/25 06:15 650 MG Acetaminophen 325 mg Q4HP PRN PO 02/03/25 16:00 Ipratropium [place] 0.5 mg Q6HWA [facility] 02/04/25 06:00 02/05/25 06:41 0.5 MG Levalbuterol HCl 0.625 mg Q6HR NEB 02/04/25 00:00 02/05/25 06:40 0.625 MG Enoxaparin Sodium 40 mg DAILY SC 02/04/25 10:00 02/04/25 11:58 40 MG Ketorolac Tromethamine 15 mg Q6HR IV 02/04/25 18:00 02/08/25 21:14 02/05/25 06:16 15 MG Examination General: Lucid, afebrile, mucosae are moist Cardiovascular: Normal S1 and S2. No murmurs, gallops or rubs Respiratory: Regular ventilation mechanics. Clear lung sounds on auscultation. Currently on nasal cannula 3 L/min. Abdomen: Soft, mild tenderness in surgical incision site in epigastrium, rest of abdomen nontender, no organomegaly, reduced bowel sounds. JERMAINE drainage on right lower quadrant with serous-hematic fluid 30 mL MSK/skin: Mobilizes 4 limbs. Skin is dry and warm. Mild petechia on anterior chest Neurological: Oriented in 3 spheres. No motor no sensitive deficits. Pupils are isocoric and reactive laboratory and microbiology Laboratory Tests 02/04/25 05:58 Test 02/04/25 05:58 Range/Units Serum Glucose 125 H 74-106 mg/dL Microbiology Date/Time Source Procedure Growth Status 02/02/25 12:33 Abdomen Gram Stain Pending Resulted 02/02/25 12:33 Abdomen Anaerobic Culture - Preliminary Resulted 02/02/25 12:33 Aerobic Culture - Preliminary Escherichia coli Resulted 01/31/25 20:35 Blood Blood Culture - Preliminary NO GROWTH AFTER 72 HOURS OF INCUBATION. Resulted Labs and/or images reviewed: Labs reviewed by me, Image(s) reviewed by me Problem List/Assessment/Plan Problem List/Assessment/Plan # Sepsis secondary to acute cholecystitis # Acute cholecystitis - s/p cholecystectomy via laparoscopy # Hepatic steatosis # Hyperbilirubinemia -Gallbladder ultrasound showed Cholelithiasis with fluid and moderate gallbladder wall thickening. Diffuse hepatic steatosis. -HIDA scan ordered, results pending -Surgery consulted: Completed laparoscopic cholecystectomy. -Currently patient is on clear liquid diet -Physical therapy on board -Requiring IV fluid resuscitation. -Currently under empiric IV antibiotics (Zosyn) -Pending blood cultures. Surgical culture shows E coli multi sensitive. # Acute respiratory failure secondary to flash pulmonary edema # Hypercapnia respiratory failure - probably chronic # Questionable obesity hypoventilation syndrome -Patient presented during immediate postop acute respiratory failure requiring BiPAP. Was status GARY for 24 hours -Currently on oxygen therapy with nasal cannula 4 L/min -Indicated incentive spirometer -a repeat x-ray was done last night, due to patient desaturating without oxygen. X-ray showed diffuse atelectasis. Encouraged to do incentive spirometry. -IV Lasix 20 mg given once for relief of symptoms. # Hypertensive urgency -Patient has history of hypertension but was controlled with lifestyle habits. -Was admitted with systolic blood pressure of 240 mmHg. Has no signs of end- organ damage -Started nifedipine # Newly diagnosed hypothyroidism -TSH above 20 in low free T4 and total T3 -Initiated levothyroxine 50 mcg p.o. daily # Diabetes mellitus # Hypertension -Accu-Cheks -On mild insulin sliding scale -Gave advice on healthy lifestyle habits # Obesity BMI 33.6 -Patient counseled on lifestyle modifications, diet, exercise for 13 minutes -Questionably secondary to hypothyroidism. Initiated treatment Goals of care discussed with patient for over 18 minutes: Full code status Case discussed with Dr. Abdi, patient and nurses: Patient currently on nasal cannula 3 L, on empiric IV antibiotic, tolerating clear liquid diet. Plan discussed with: Patient, Other (Nurses) My Orders My Orders Orders - ASPEN BATISTA Procedure Category Date Status Time Covid19 Antigen Dodie LAB 02/05/25 Logged Dietary Evaluation Review Recommendations by RD: Dietary education by RD Comments: 1) Add 60g CCHO cardiac restriction to diet 2) Refer to outpatient RD for weight management 3) Follow-up with gastroenterology 4) Continue to monitor I&O, labs, and skin integrity Expected Outcomes/Goals: 1) appetite and labs to improve 2) gradual wt loss 3) f/u in 3-5 days ASPEN BATISTA RESIDENT Feb 05, 2025 09:56 DONAL MAXWELL RESIDENT Feb 07, 2025 23:43
[2025-02-05] MEDS: FUROSEMIDE 20 MG/2 ML VIAL IV ONE (12:39)
[2025-02-05 13:41] LABS: Uric Acid 4.4 mg/dL (3.7-9.2)
[2025-02-05] MEDS: PIPERACILLIN-TAZOB 3.375GM 100 ML IV SCH (18:20)
--- NOTE | 2025-02-05 20:10 | DVH ---
EXAM: US RIGHT LOWER EXTREMITY ULTRASOU DATE OF SERVICE: 02/05/2025 06:58 PM ORDERING PHYSICIAN: ASPEN BATISTA RESIDENT REASON FOR EXAM: Rt knee effusion TECHNIQUE: Sonographic images of the right knee required. COMPARISON: None FINDINGS: There is an anterior knee joint effusion measuring 5.5 x 2.2 x 7.1 cm with internal debris . IMPRESSION: 5.5 x 2.2 x 7.1 cm anterior knee joint effusion with internal debris. End of Report
[2025-02-05 20:56] LABS: COVID19 ANTIGEN SOFIA FIA NEGATIVE (NEGATIVE)
[2025-02-06] VITALS (14 sets, daily range): BP systolic 129–137; BP diastolic 84–92; PULSE 71–86; RESP 16–21; TEMP 36.7; O2SAT 93–100
[2025-02-06 09:55] LABS: Base Excess 4.7 mmol/L (-2.0-3.0)
[2025-02-06 10:18] LABS: Hematocrit 46.2 % (41.0-53.0); Hemoglobin 15.7 g/dL (13.5-17.5); Mean Corpuscular Hemoglobin 32.8 pg (28.0-32.0); Mean Corpuscular Volume 96.8 fL (80.0-100.0); Nucleated Red Blood Cells % 0.0 %
[2025-02-06] MEDS ORDERED: IOHEXOL 350 MG/ML 100ML IJ ONE (12:12)
[2025-02-06 12:24] LABS: Alanine Aminotransferase 38 U/L (7-40); Anion Gap 6 (5-15); BUN/Creatinine Ratio 21.4 (10.0-20.0); Bilirubin, Total 1.0 mg/dL (0.2-1.0); Blood Urea Nitrogen 18 mg/dL (9-23); Carbon Dioxide 31 mmol/L (20-31); Chloride 100 mmol/L (98-107); Magnesium 2.0 mg/dL (1.6-2.6); Potassium 4.6 mmol/L (3.5-5.1); Sodium 137 mmol/L (136-145); Total Protein 5.7 g/dL (5.7-8.2)
[2025-02-06 12:25] LABS: Albumin 3.1 g/dL (3.2-4.8); Alkaline Phosphatase 210 U/L (46-116); Calcium 8.3 mg/dL (8.7-10.4); Glucose 233 mg/dL (74-106)
--- NOTE | 2025-02-06 14:12 | DVH ---
EXAM: CT CT ANGIO CHEST CONTRAST HISTORY: Rule out PE TECHNIQUE: CT angiogram was performed. CT scans at this facility use dose modulation, iterative recon struction, and/or weight based dosing when appropriate to reduce radiation dose to as low as reasonab ly achievable. Coronal and sagittal reformations and maximum intensity projection images were created from the transaxial source data by the mechanical engineering technologist and workstation, as well as 3-D volume render ed images with MIPs. COMPARISON: None FINDINGS: [LOWER NECK]: Unremarkable [LYMPH NODES/MEDIASTINUM]: Right hilar lymph node, 1.2 cm. Small subcentimeter right epicardial lymph nodes [CARDIOVASCULAR]: Normal cardiac size. No pericardial effusion. No aneurysmal dilatation of the great vessels. No significant coronary artery calcifications. [PULMONARY ARTERIES]: No pulmonary arterial filling defect. Prominence of the main pulmonary artery s uggestive of pulmonary hypertension. No evidence of elevated right heart pressures. [UPPER ABDOMEN]: Unremarkable. [MUSCULOSKELETAL]: No acute fracture or aggressive focal osseous lesion. Multilevel degenerative verdin ge of the visualized spine. [CHEST WALL]: Subcutaneous adipose tissue edema of the anterior lower aspect of the chest. Mild bilat eral gynecomastia. [LUNG PARENCHYMA/PLEURAL SPACE]: Trace bilateral pleural effusions. Atelectasis in bilateral lung ba ses. Low lung volumes, which cause crowding of the bronchovascular markings. volumes. Inconspicuous possible peripheral interstitial edema. Inconspicuous possible areas of hypoattenuation/ hypoenhancem ent which may reflect consolidation of the right lower lobe. IMPRESSION: 1. No CTA evidence of pulmonary embolism. 2. Trace bilateral pleural effusions. 3. Inconspicuous possible areas of hypoattenuation/ hypoenhancement which may reflect consolidation o f the right lower lobe.
--- NOTE | 2025-02-06 14:49 | DVHPNRES ---
Progress Note Date Seen: Feb 06, 2025 Resident Creating Document: ASPEN BATISTA RESIDENT Medical Necessity Reason Pt with a Central, PICC or Fol: No (RN) Objective vital signs Vital Sign Date Time Temp Pulse Resp B/P (MAP) Pulse Ox O2 Delivery O2 Flow Rate FiO2 02/06/25 13:00 97.7 78 18 129/90 (103) 96 97.7 02/06/25 11:38 Nasal Cannula 4.0 02/06/25 11:38 36 Total Intake and Output 02/05/25 02/05/25 02/06/25 15:00 23:00 07:00 Intake Total 790 ml 955 ml 200 ml Output Total 20 ml 900 ml 1800 ml Balance 770 ml 55 ml -1600 ml medications Current Medications Medications Dose Ordered Sig/Rolo Route Start Time Stop Time Status Last Admin Dose Admin Ondansetron HCl 4 mg Q4HP PRN IV 02/01/25 01:30 02/01/25 02:39 4 MG Nifedipine 60 mg DAILY PO 02/01/25 02:30 02/06/25 11:03 60 MG Ergocalciferol 50,000 unit Q7D PO 02/04/25 10:00 02/04/25 11:57 50,000 UNIT Diagnostic Test (Pha) 1 strip Q6HR 02/02/25 12:00 02/06/25 06:28 1 STRIP Insulin Human Regular Q6HR SC 02/02/25 12:00 02/06/25 06:35 2 UNITS Dextrose 50 ml UD PRN IV 02/02/25 06:30 Levothyroxine Sodium 50 mcg QAM@0600 PO 02/04/25 06:00 02/06/25 06:27 50 MCG Morphine Sulfate 4 mg Q4HPRN PRN IV 02/03/25 15:30 02/04/25 06:41 4 MG Acetaminophen 650 mg TID PO 02/03/25 22:00 02/06/25 06:27 650 MG Acetaminophen 325 mg Q4HP PRN PO 02/03/25 16:00 Ipratropium [place] 0.5 mg Q6HWA NEB 02/04/25 06:00 02/06/25 11:38 0.5 MG Levalbuterol HCl 0.625 mg Q6HR NEB 02/04/25 00:00 02/06/25 11:38 0.625 MG Enoxaparin Sodium 40 mg DAILY SC 02/04/25 10:00 02/06/25 11:04 40 MG Ketorolac Tromethamine 15 mg Q6HR IV 02/04/25 18:00 02/08/25 21:14 02/06/25 13:50 15 MG Piperacillin Sod/ Tazobactam Sod 100 ml @ 25 mls/hr Q8H IV 02/05/25 18:00 02/06/25 11:03 25 MLS/HR laboratory and microbiology Laboratory Tests 02/06/25 09:45 Test 02/06/25 09:45 Range/Units Serum Glucose 233 #H 74-106 mg/dL Microbiology Date/Time Source Procedure Growth Status 02/02/25 12:33 Abdomen Gram Stain - Final Resulted 02/02/25 12:33 Abdomen Anaerobic Culture - Preliminary Resulted 02/02/25 12:33 Aerobic Culture - Final Escherichia coli Resulted 01/31/25 20:35 Blood Blood Culture - Final NO GROWTH AFTER 5 DAYS OF INCUBATION. Complete Problem List/Assessment/Plan Problem List/Assessment/Plan # Sepsis secondary to acute cholecystitis # Acute cholecystitis - s/p cholecystectomy via laparoscopy # Hepatic steatosis # Hyperbilirubinemia -Gallbladder ultrasound showed Cholelithiasis with fluid and moderate gallbladder wall thickening. Diffuse hepatic steatosis. -HIDA scan ordered, results pending -Surgery consulted: Completed laparoscopic cholecystectomy. -Currently patient is on clear liquid diet -Physical therapy on board -Requiring IV fluid resuscitation. -Currently under empiric IV antibiotics (Zosyn) -Pending blood cultures. Surgical culture shows E coli multi sensitive. # Acute respiratory failure secondary to flash pulmonary edema # Hypercapnia respiratory failure - probably chronic # Questionable obesity hypoventilation syndrome -Patient presented during immediate postop acute respiratory failure requiring BiPAP. Was status GARY for 24 hours -Currently on oxygen therapy with nasal cannula 4 L/min -Indicated incentive spirometer -a repeat x-ray was done last night, due to patient desaturating without oxygen. X-ray showed diffuse atelectasis. Encouraged to do incentive spirometry. -IV Lasix 20 mg given once for relief of symptoms. # Hypertensive urgency -Patient has history of hypertension but was controlled with lifestyle habits. -Was admitted with systolic blood pressure of 240 mmHg. Has no signs of end- organ damage -Started nifedipine # Newly diagnosed hypothyroidism -TSH above 20 in low free T4 and total T3 -Initiated levothyroxine 50 mcg p.o. daily # Diabetes mellitus # Hypertension -Accu-Cheks -On mild insulin sliding scale -Gave advice on healthy lifestyle habits # Obesity BMI 33.6 -Patient counseled on lifestyle modifications, diet, exercise for 13 minutes -Questionably secondary to hypothyroidism. Initiated treatment Goals of care discussed with patient for over 18 minutes: Full code status Case discussed with Dr. Patton, patient and nurses: Patient currently on nasal cannula 3 L, on empiric IV antibiotic, tolerating clear liquid diet. My Orders My Orders Orders - ASPEN BATISTA Procedure Category Date Status Time Right Lower Extremity US 02/05/25 Resulted Ultrasou 18:35 Comprehensive LAB 02/07/25 Verified Metabolic Panel 04:00 Respiratory Culture LILLIANA 02/06/25 Uncollected W/ Gs 14:22 Dietary Evaluation Review Recommendations by RD: Dietary education by RD Comments: 1) Add 60g CCHO cardiac restriction to diet 2) Refer to outpatient RD for weight management 3) Follow-up with gastroenterology 4) Continue to monitor I&O, labs, and skin integrity Expected Outcomes/Goals: 1) appetite and labs to improve 2) gradual wt loss 3) f/u in 3-5 days ASPEN BATISTA RESIDENT Feb 06, 2025 14:49
--- NOTE | 2025-02-06 18:17 | DVHPNRES ---
Progress Note Date Seen: Feb 06, 2025 Resident Creating Document: ASPEN BATISTA RESIDENT Medical Necessity Reason Pt with a Central, PICC or Fol: No (RN) Subjective Review of Systems Ferdinand Hong is a 44-year-old male who presents to the ED with chief complaint of right upper quadrant and epigastric tenderness which is 10/10 intensity and radiating to the back associated with nausea, 1 episode of vomiting which started four days before his admission, aggravated by food and partially relieved by ibuprofen and fasting. Patient denies any diarrhea, fever, chills, headache, dizziness, dysuria, hematuria, blood in the stool. Past medical history: Diabetes, hypertension, dyslipidemia, obese Past surgical history: Denies Family History: Noncontributory Social history: Lives with family in [place] (next o kin ). Current smoker (5-6 cigarettes per day a proximally 10 pack-year history of smoking), drinks 5 beers per week, denies any drug use Allergies: Denies Home medication: Metformin a 1000 mg p.o. b.i.d. The patient was seen and examined at bedside. Overnight events were reviewed. Currently status post cholecystectomy via laparoscopy. The patient reports having shortness of breaths without 4 L oxygen. Continues using incentive spirometry. The patient was discharged home with home oxygen. He denies any chest pain, fever, abdominal pain. Objective vital signs Vital Sign Date Time Temp Pulse Resp B/P (MAP) Pulse Ox O2 Delivery O2 Flow Rate FiO2 02/06/25 17:00 98.0 83 18 130/84 (99) 95 98.0 02/06/25 11:38 Nasal Cannula 4.0 02/06/25 11:38 36 Total Intake and Output 02/05/25 02/05/25 02/06/25 15:00 23:00 07:00 Intake Total 790 ml 955 ml 200 ml Output Total 20 ml 900 ml 1800 ml Balance 770 ml 55 ml -1600 ml medications Current Medications Medications Dose Ordered Sig/Rolo Route Start Time Stop Time Status Last Admin Dose Admin Ondansetron HCl 4 mg Q4HP PRN IV 02/01/25 01:30 02/01/25 02:39 4 MG Nifedipine 60 mg DAILY PO 02/01/25 02:30 02/06/25 11:03 60 MG Ergocalciferol 50,000 unit Q7D PO 02/04/25 10:00 9/7/25 11:57 50,000 UNIT Diagnostic Test (Pha) 1 strip Q6HR 02/02/25 12:00 02/06/25 06:28 1 STRIP Insulin Human Regular Q6HR SC 02/02/25 12:00 02/06/25 06:35 2 UNITS Dextrose 50 ml UD PRN IV 02/02/25 06:30 Levothyroxine Sodium 50 mcg QAM@0600 PO 02/04/25 06:00 02/06/25 06:27 50 MCG Morphine Sulfate 4 mg Q4HPRN PRN IV 02/03/25 15:30 02/04/25 06:41 4 MG Acetaminophen 650 mg TID PO 02/03/25 22:00 02/06/25 06:27 650 MG Acetaminophen 325 mg Q4HP PRN PO 02/03/25 16:00 Ipratropium Murchison 0.5 mg Q6HWA NEB 02/04/25 06:00 02/06/25 11:38 0.5 MG Levalbuterol HCl 0.625 mg Q6HR NEB 02/04/25 00:00 02/06/25 11:38 0.625 MG Enoxaparin Sodium 40 mg DAILY SC 02/04/25 10:00 02/06/25 11:04 40 MG Ketorolac Tromethamine 15 mg Q6HR IV 02/04/25 18:00 02/08/25 21:14 02/06/25 13:50 15 MG Piperacillin Sod/ Tazobactam Sod 100 ml @ 25 mls/hr Q8H IV 02/05/25 18:00 02/06/25 11:03 25 MLS/HR Examination Pt is lying on bed General Appearance: Alert, Oriented X3, Cooperative, Mild distress HEENT: Atraumatic, Mucous membranes moist/pink Respiratory: Clear to auscultation, Normal air movement, No added sounds Cardiovascular: Regular rate, Normal S1, Normal S2, No murmurs Abdominal/ : Active bowel sounds, Soft, no distention, Soft, mild tenderness in surgical incision site in epigastrium, rest of abdomen nontender, no organomegaly, reduced bowel sounds. 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 laboratory and microbiology Laboratory Tests 02/06/25 09:45 Test 02/06/25 09:45 Range/Units Serum Glucose 233 #H 74-106 mg/dL Microbiology Date/Time Source Procedure Growth Status 02/02/25 12:33 Abdomen Gram Stain - Final Resulted 02/02/25 12:33 Abdomen Anaerobic Culture - Preliminary Resulted 02/02/25 12:33 Aerobic Culture - Final Escherichia coli Resulted 01/31/25 20:35 Blood Blood Culture - Final NO GROWTH AFTER 5 DAYS OF INCUBATION. Complete Labs and/or images reviewed: Labs reviewed by me, Image(s) reviewed by me Problem List/Assessment/Plan Problem List/Assessment/Plan # Sepsis secondary to acute cholecystitis # Acute cholecystitis - s/p cholecystectomy via laparoscopy # Hepatic steatosis # Hyperbilirubinemia -Gallbladder ultrasound showed Cholelithiasis with fluid and moderate gallbladder wall thickening. Diffuse hepatic steatosis. -HIDA scan ordered, results pending -Surgery consulted: Completed laparoscopic cholecystectomy. -Currently patient is on clear liquid diet -Physical therapy on board -Requiring IV fluid resuscitation. -Currently under empiric IV antibiotics (Zosyn) -Pending blood cultures. Surgical culture shows E coli multi sensitive. # Acute respiratory failure secondary to flash pulmonary edema # Hypercapnia respiratory failure - probably chronic # Questionable obesity hypoventilation syndrome -Patient presented during immediate postop acute respiratory failure requiring BiPAP. Was status GARY for 24 hours -Currently on oxygen therapy with nasal cannula 4 L/min -Indicated incentive spirometer -a repeat x-ray was done last night, due to patient desaturating without oxygen. X-ray showed diffuse atelectasis. Encouraged to do incentive spirometry. -IV Lasix 20 mg given once for relief of symptoms. # Gout # Right knee effusion Injection Toradol IV Knee fluid drained by IR Fluid sent for cytology, albumin, glucose, pH and culture # Hypertensive urgency -Patient has history of hypertension but was controlled with lifestyle habits. -Was admitted with systolic blood pressure of 240 mmHg. Has no signs of end- organ damage -Started nifedipine # Newly diagnosed hypothyroidism -TSH above 20 in low free T4 and total T3 -Initiated levothyroxine 50 mcg p.o. daily # Diabetes mellitus # Hypertension -Accu-Cheks -On mild insulin sliding scale -Gave advice on healthy lifestyle habits # Obesity BMI 33.6 -Patient counseled on lifestyle modifications, diet, exercise for 13 minutes -Questionably secondary to hypothyroidism. Initiated treatment The patient is discharged home with home oxygen. Goals of care discussed with patient for over 18 minutes: Full code status Case discussed with Dr. Patton, patient and nurses: Patient currently on nasal cannula 3 L, on empiric IV antibiotic, tolerating clear liquid diet. Plan discussed with: Patient, Other (Nurses) Plan discussed with: Patient, Other (RN) My Orders My Orders Orders - ASPEN BATISTA RESIDENT Procedure Category Date Status Time Right Lower Extremity US 02/05/25 Resulted Ultrasou 18:35 Comprehensive LAB 02/07/25 Verified Metabolic Panel 04:00 Respiratory Culture LILLIANA 02/06/25 Uncollected W/ Gs 14:22 Us Guidance For US 02/06/25 Taken Needle Placeme Body Fluid Ph LAB 02/06/25 In Process 15:58 Body Fluid Culture W/ LILLIANA 02/06/25 In Process GS 15:58 Body Fluids, Diff. LAB 02/06/25 In Process Cell Count 15:58 Protein, Body Fluid LAB 02/06/25 In Process 16:09 Glucose Body Fluid LAB 02/06/25 In Process 16:13 Amylase,Body Fluid LAB 02/06/25 In Process 16:13 Albumin; Body Fluid LAB 02/06/25 In Process 16:13 * Senior Pricing Analyst CONS 02/06/25 Transmitted Consult 17:10 Discharge DISCHARGE 02/06/25 Transmitted 17:55 Dietary Evaluation Review Recommendations by RD: Dietary education by RD Comments: 1) Add 60g CCHO cardiac restriction to diet 2) Refer to outpatient RD for weight management 3) Follow-up with gastroenterology 4) Continue to monitor I&O, labs, and skin integrity Expected Outcomes/Goals: 1) appetite and labs to improve 2) gradual wt loss 3) f/u in 3-5 days ASPEN BATISTA RESIDENT Feb 06, 2025 18:17 DONAL MAXWELL RESIDENT Feb 07, 2025 23:42
--- NOTE | 2025-02-07 08:32 | DVH ---
US US GUIDANCE FOR NEEDLE PLACEME, HISTORY: RT KNEE ASPIRATION PROCEDURE: An informed consent was obtained. The patient was placed supine on the table. The right kn ee fluid collection was localized with ultrasound and the overlying skin prepped with chlorhexidine w hich was allowed to dry and draped in the usual sterile fashion. Time out was performed and infiltrat ed with 1% Xylocaine. With US guidance, 19-gauge centesis needle catheter was advanced into the right knee fluid collection. Approximately 50 cc of cloudy serous fluid was aspirated. No immediate com plication was identified. FINDINGS: Limited US scan of through the right knee demonstrates a fluid collection in the r night k nee joint space. Collection appears simple with debris . IMPRESSION: US guided right knee arthrocentesis with 50 mL fluid removed.
[2025-02-07] MEDS ORDERED: LEVO50TA7 PO (23:46)
== END 2025-02-06 20:40 | disposition home or self-care (01) | DRG 710 ==
LOC: ER 18:01 → OVERFLOW 02-01 01:28 → CENTRAL 02-01 14:43 → TELE-CENTR 02-02 13:47 → DOU 02-02 16:18 → TELE-EAST 02-03 18:54
PROVIDERS: ADMIT Student in an Organized Health Care Education/Training Program; ATTEND Student in an Organized Health Care Education/Training Program
PROC: 5A09357 Assistance with Respiratory Ventilation, Less than 24 Consecutive Hours, Continuous Positive Airway Pressure (ICD-10-PCS; 2025-02-02)
PROC: 0FT44ZZ Resection of Gallbladder, Percutaneous Endoscopic Approach (ICD-10-PCS; principal; 2025-02-02 11:52)
PROC: 5A09357 Assistance with Respiratory Ventilation, Less than 24 Consecutive Hours, Continuous Positive Airway Pressure (ICD-10-PCS; 2025-02-03)
PROC: 5A09357 Assistance with Respiratory Ventilation, Less than 24 Consecutive Hours, Continuous Positive Airway Pressure (ICD-10-PCS; 2025-02-04)
PROC: 5A09357 Assistance with Respiratory Ventilation, Less than 24 Consecutive Hours, Continuous Positive Airway Pressure (ICD-10-PCS; 2025-02-05)
PROC: 0S9C3ZZ Drainage of Right Knee Joint, Percutaneous Approach (ICD-10-PCS; 2025-02-06)
DX: A41.9 Sepsis, unspecified organism (principal); J95.821 Acute postprocedural respiratory failure; J81.0 Acute pulmonary edema; K80.00 Calculus of gallbladder with acute cholecystitis without obstruction; I16.0 Hypertensive urgency; K76.0 Fatty (change of) liver, not elsewhere classified; E11.9 Type 2 diabetes mellitus without complications; F19.10 Other psychoactive substance abuse, uncomplicated; Z68.33 Body mass index [BMI] 33.0-33.9, adult; E66.9 Obesity, unspecified; G47.33 Obstructive sleep apnea (adult) (pediatric); Z20.822 Contact with and (suspected) exposure to COVID-19; F17.210 Nicotine dependence, cigarettes, uncomplicated; E80.6 Other disorders of bilirubin metabolism; E03.9 Hypothyroidism, unspecified; M25.461 Effusion, right knee; M10.9 Gout, unspecified; Z79.84 Long term (current) use of oral hypoglycemic drugs
CPT/HCPCS: 36415; 36600; 71045; 71275; 76705; 76881; 76942; 78226; 80048; 80053; 80307; 81001; 82247; 82306; 82805; 82962; 83036; 83605; 83690; 83735; 83986; 84100; 84439; 84443; 84480; 84550; 85025; 85610; 85652; 85730; 86141; 86376; 86800; 86803; 86850; 86900; 86901; 87040; 87070; 87071; 87075; 87077; 87186; 87205; 87340; 87426; 89051; 93005; 93306; 94640; 94660; 96365; 96375; 97110; 97116; 97163; 99291; C1729; G0378; J0131; J1100; J1815; J1885; J2250; J2405; J2543; J2704; J3490